=== PATIENT | male | born 1940 | race Caucasian/White ===

== ENCOUNTER 2024-10-16 16:07 | Inpatient (IN) ==
--- NOTE | 2024-10-16 16:25 | Emergency Department Note ---
HPI - Fall General Chief Complaint: Fall Stated Complaint: low back pain from a fall Time Seen by Provider: 10/16/24 16:20 Source: patient Mode of arrival: ambulance Limitations: no limitations History of Present Illness HPI Narrative: 84-year-old male presents to ER via EMS after falling on his front porch while tending to sit in a chair and missing. Patient reports he is having low back pain increased coughing with shortness of breath and bodyaches. MD complaint: Reports fall Onset (ago): minute(s) Fall from: Reports standing Fall witnessed: Reports no Place fall occurred: Reports home Loss of consciousness: none Prolonged down time: Reports no Symptoms prior to fall: Reports none Context: Reports tripped/slipped Location of injury: Reports back Severity: moderate Quality: Reports aching, spasming and throbbing Associated symptoms (after fall): Reports weakness, chest pain, shortness of breath and other (Productive cough) Related Data Home Medications Medication Instructions Recorded Confirmed alfuzosin 10 mg tablet,extended 10 mg PO DAILY 4 02/02/24 release 24 hr gabapentin 400 mg capsule 400 mg PO TID 02/02/2402/01 latanoprost 0.005 % eye drops 1 drp ophthalmic (eye) . QHS 02/02/24 02/03/24 levothyroxine 25 mcg tablet 25 mcg PO DAILY 02/02/24 0 02/02/24 (Synthroid) levothyroxine 50 mcg tablet 50 mcg PO DAILY 02/02/24 0 02/03/24 (Synthroid) simvastatin 20 mg tablet 20 mg PO BEDTIME 02/02/24 fluticasone 250 mcg-salmeterol 50 1 inh inhalation CIARA LY 02/03/24 02/03/24 mcg/dose blistr powdr for inhalation (Wixela Inhub) furosemide 40 mg tablet (Lasix) 40 mg PO DAILY 4 02/03/24 glimepiride 2 mg tablet 2 mg PO QAM 02/03/24 4 guaifenesin 600 mg tablet, 1,200 mg PO DAILY 02/03/24 02/03/24 extended release 12 hr (Mucinex) ipratropium bromide 0.02 % 2.5 ml inhalation TID PRN 0 02/03/24 02/03/24 solution for inhalation shortness of breath or wheez ing potassium chloride 10 mEq 10 meq PO DAILY 02/03/24 tablet,extended release Previous Rx's Medication Instructions Recorded azithromycin 250 mg tablet See Rx Instructions PO .COM PLEX 02/06/24 (Zithromax Z-Elvin) pneumonia #6 tabs prednisone 10 mg tablets in a dose See Rx Instructions PO .COMPLEX 02/06/24 pack copd #21 ea albuterol sulfate 90 mcg/actuation 2 puff inhalation Q 4H PRN 06/12/24 aerosol inhaler shortness of breath or wheez ing #8.5 grams Allergies Allergy/AdvReac Type Severity Reaction Status Date / Time No Known Drug Allergies Allergy Verified 10/16/24 16:12 Review of Systems Status of ROS 10 or more systems reviewed and unremark able except as noted in history and below Constitutional Reports: fatigue Ears, nose, mouth, and throat Reports: nasal discharge and nasal congestion Cardiovascular Reports: chest pain, shortness of breath with exertion and shortness of breath when lying down Respiratory Reports: shortness of breath, cough, change in phlegm color and chest congestion Musculoskeletal Reports: back pain Psychiatric Reports: anxiety Endocrine Reports: fatigue Allergic/Immunologic Reports: seasonal allergies PFSH PFSH Medical History Diabetes Anemia, normocytic normochromic Idmqm-us-stzaziv kidney injury Dementia Chronic venous stasis dermatitis of both lower extremities Diabetic neuropathy associated with type 2 diabetes mellitus Congestive heart failure Glaucoma COPD (chronic obstructive pulmonary disease) Diabetic neuropathic cachexia BPH (benign prostatic hyperplasia) Hypothyroid HTN (hypertension) HLD (hyperlipidemia) Surgical History History of amputation of right great toe Social History (Updated 06/12/24 @ 19:02 by Mignon Galindo APRN) Smoking status: unknown if ever smoked Within the past year, how often did you have a drink containing alcohol: never Score interpretation: A score less than 4 is consistent with normal alcohol consumption. Non-prescribed substance use: denies use Problems where you live: no known problems Highest level of school completed/degree received: high school Feel stressed/tense/nervous/anxious/difficulty sleeping: not at all Life stressors: financial matters Life stressor details: n/a Gender Identity: male Exam Constitutional: normal general appearance, distress noted (moderate) and (respiratory), average body habitus, no limitations and alert Vital Signs - 24 hr 10/16/24 16:11 Temperature 99.4 F Pulse Rate 86 Respiratory Rate 18 Blood Pressure 136/55 Pulse Oximetry 94 L HENMT: normocephalic, head/scalp atraumatic, hearing grossly normal bilaterally, external ears normal, nasal mucous membranes abnormal (Clear) (nasal discharge), external nose normal, oral mucous membranes normal, oropharyn x normal and gingiva normal Eyes: PERRL, EOMs intact bilaterally, conjunctivae normal, no scleral icterus, no papilledema, normal visual garcia by confrontation, alignment normal, periorbital findings normal and no nystagmus Neck/C-Spine: visual inspection normal, trachea midline, cervical spine nontender, cervical full ROM noted and supple Lymph: no lymphadenopathy noted and no lymphedema noted Chest: inspection of chest normal, inspection of breast(s) abnormal and palpation of breast(s) abnormal Respiratory: breath sounds equal bilaterally, normal respiratory effort, auscultation abnormal (diminished breath sound) (Bilateral lower lobes), no wheezes, no rales, no retractions and no use of accessory muscles Patient has a noted productive cough, and decreased lung sounds bilaterally in the lower lobes. Cardiovascular: normal heart rate noted, regular rhythm noted, no gallop, no JVD, peripheral pulses 2+ throughout and no additional abnormal heart sounds Gastrointestinal: abdomen normal to inspection, abdomen soft to palpation, nontender to palpation, nondistended, normoactive bowel sounds, no hepatosplenomegaly, no masses, no pulsatile mass, no ascites and normal rectal exam (deferred) Genitourinary: no CVA tenderness, bladder normal to palpation, penis abnormal (deferred), uncircumcised, testes abnormal, meatus abnormal (deferred), scrotum abnormal (deferred) and inguinal lymphadenopathy noted Back/Pelvis: spine normal to inspection, no thoracic spine tenderness, lumbar spine tenderness noted, thoracic spine ROM normal, lumbar spine ROM normal and no paraspinal muscle tenderness noted Patient reports pain in the lumbar section of the spine with no noted crepitus or step-offs felt on palpation, patient reports he has chronic back pain but it is worse since he fell today. Extremities: normal to inspection, normal to palpation, no tenderness, full ROM, no joint enlargement and no deformity Neurology: corset maker II-XII intact, no movement abnormality noted, no focal motor deficit noted, no sensory deficits noted, gait abnormality noted (unable to access), speech normal, coordination normal, no pronator drift noted, no fasciculations noted and GCS normal Psychiatry: Mental Status Exam documented within this Exam's Psych section mental status grossly normal, oriented x3, thought process normal, cooperative, affect normal, psychomotor activity normal and memory normal Feel stressed/tense/nervous/anxious/difficulty sleeping: not at all Life stressor details: n/a Skin: skin color normal, no rash, no lesions, no ecchymosis noted, no wounds, no lacerations, skin turgor normal, no jaundice, no petechiae, no mottling, nails normal and no alopecia Course Course Hospital Course: 84-year-old male who presented to ER via EMS after falling at home while attempting to get in his shower chair on the front porch and complains of low back pain and productive cough has been evaluated by physical exam, CBC, CMP, urinalysis, EKG, plain film chest x-ray, swabs for flu and COVID, and CT of the lumbar spine results as noted in charting. Patient's chest x-ray shows bilateral lower lobe pneumonia, patient CT of the lumbar spine reveals no acute lumbar fracture with degenerative disc degeneration and bibasilar pneumonia, patient's CMP reveals acute on chronic renal failure, dehydration, and hypoalbuminemia. On arrival patient's O2 saturations were 88% on room air he has improved to 94% on 2 L by nasal cannula. [facility], I will also begin the patient hydration therapy, breathing treatments, antibiotic therapy, and incentive spirometry. Patient has been made aware of the admission and agrees with the treatment plan. Vital Signs Vital signs: Vital Signs Temperature 99.4 F 10/16/24 16:11 Pulse Rate 86 10/16/24 16:11 Respiratory Rate 18 10/16/24 16:11 Blood Pressure 136/55 10/16/24 16:11 Pulse Oximetry 94 L 10/16/24 16:11 Temperature 99.4 F 10/16/24 16:11 Pulse Rate 86 10/16/24 16:11 Respiratory Rate 18 10/16/24 16:11 Blood Pressure 136/55 10/16/24 16:11 Pulse Oximetry 94 L 10/16/24 16:11 MDM - Fall MDM Narrative Medical decision making narrative: Medical Decision Making patient Volle physical exam, CBC, CMP, urinalysis, plain film chest x-ray, CT of the lumbar spine, Swabs for flu and COVID, and EKG. Differential Diagnosis Differential diagnosis: Likely compression fracture, concussion without loss of consciousness and other (COVID, influenza, pneumonia) Medical Records Attestation: I reviewed the patient's medical records. Lab Data Attestation: I reviewed the patient's lab results. Labs: Lab Results 10/16/24 Range/Units 16:30 WBC 6.0 (3.7-9.6) K/uL RBC 3.9 L (4.40-5.80) M/uL Hgb 10.9 L (14.0-17.4) gm/dL Hct 33.9 L (41.3-50.1) % MCV 87.7 (81.9-96.5) fl MCH 28.2 (27.6-33.7) pg MCHC 32.1 L (33.0-35.7) g/dl RDW 14.9 H (11.0-14.8) % Plt Count 197 (142-355) K/uL MPV 8.3 (6.0-10.4) fl Gran % 72.8 (49.1-73.1) % Lymph % (Auto) 15.2 L (17.6-39.05) % [place] % (Auto) 8.3 (4.5-10.7) % Eos % (Auto) 3.2 (0.0-4.0) % Baso % (Auto) 0.5 (0.0-1.3) Lymph # (Auto) 0.9 (0.8-2.9) [place] # (Auto) 0.5 (0.2-0.8) Eos # (Auto) 0.2 (0.0-0.3) Baso # (Auto) 0.0 (0.0-0.1) Absolute Gran (auto) 4.3 (2.0-6.2) Sodium 136 (136-145) mmol/L Potassium 4.2 (3.6-5.2) mmol/L Chloride 102.0 (98-107) mmol/L Carbon Dioxide 29 (21-32) mmol/L Anion Gap 5.0 (4-14) mEq/L BUN 31 H (7-18) mg/dL Creatinine 1.9 H (0.6-1.3) mg/dL Estimated GFR 33.9 (>59.9) Glucose 118 H (70-110) mg/dL Calcium 9.5 (8.5-10.1) mg/dL Magnesium 2.1 (1.8-2.4) mg/dL Total Bilirubin 0.38 (0.0-1.0) mg/dL AST 13 L (15-37) U/L ALT 9 L (30-65) U/L Alkaline Phosphatase 91 (50-136) U/L Troponin I High Sens 12.30 (4.0-60.4) ng/L Total Protein 7.6 (6.4-8.2) g/dL Albumin 3.1 L (3.4-5.0) g/dL COVID-19 (ML) Not detected (Not Detectd) Influenza Type A Ag Negative (Negative) Influenza Type B Ag Negative (Negative) Imaging Data Imaging ordered: Chest x-ray and other (CT scan lumbar spine) Attestation: I personally reviewed and interpreted this imaging study as follows: My impression: Bilateral lower lobe pneumonia Radiologist's impression: EXAM: CT LUMBAR SPINE WO CON HISTORY: fall c/o lower back pain; COMPARISON: Partial visualization of the lumbar spine on CT of the chest without contrast June 12, 2024 TECHNIQUE: CT of the lumbar spine without contrast FINDINGS: There is mild inferior endplate contour irregularity involving L2 which may be due to Schmorl's node activity and is visible on the comparison study unchanged. Otherwise, vertebral body heights are maintained. Degenerative disc changes are noted at L4-5 and L5-S1 with vacuum disc phenomenon. There is bilateral neural foraminal encroachment at L4-5 and L5-S1. The SI joints align normally. The bones are demineralized. Airspace infiltrates are visible in the lung bases concerning for developing pneumonia. There is a large infrarenal aortic aneurysm present with stents extending into the common iliac arteries. The gallbladder is partially visible and appears distended with a dependent stone. No pelvic free fluid. Extensive colon diverticulosis is present. IMPRESSION: Mild bibasilar pneumonia. No lumbar fracture or subluxation. Multilevel degenerative disc and facet changes most pronounced in the lower lumbar spine. All CT scans at this facility use dose modulation, iterative reconstruction, and/or weight based dosing when appropriate to reduce radiation dose to as low as reasonably achievable. THIS IS AN ELECTRONICALLY VERIFIED FINAL REPORT 10/16/2024 5:21 PM - Electronically signed by Dhaval Salinas MD ECG Data Attestation: I have reviewed the pertinent ECG results. Interpretation: Sinus rhythm rate 74 Normal P axis Multiple PVCs RR 792 MO 187 QT 433 P axis 84 QRS -71 T 66 Discharge Plan Discharge Patient Disposition: Admitted As Observation Condition: Stable Clinical Impression: Pneumonia of both lower lobes, Ysvmv-om-ezodxjz kidney injury, Dehydration, Hypoxia, Hypoalbuminemia Time of Disposition: 17:35
[2024-10-16 16:40] LABS: Basophils%(Percent) Auto 0.5 (0.0-1.3); Eosinophils#(Absolute)Auto 0.2 (0.0-0.3); Eosinophils%(Percent) Auto 3.2 % (0.0-4.0); Granulocytes % - Auto 72.8 % (49.1-73.1); Granulocytes#(Absolute)- Auto 4.3 (2.0-6.2); Hematocrit 33.9 % (41.3-50.1); Mean Corpuscular Volume 87.7 fl (81.9-96.5); Monocytes #(Absolute)- Auto 0.5 (0.2-0.8); Monocytes %(Percent)- Auto 8.3 % (4.5-10.7); Platelet Count 197 K/uL (142-355)
[2024-10-16 16:47] LABS: Potassium 4.2 mmol/L (3.6-5.2)
[2024-10-16] MEDS ORDERED: GUAIFENESIN/DEXTROMETHORPHAN 20/200MG/10 ML SOLUTION ONE (16:56)
[2024-10-16] MEDS ORDERED: CODEINE PHOSPHATE/GUAIFENESIN 200/20 MG/ 10 ML LIQUID ONE (16:58)
[2024-10-16] MEDS: CODEINE PHOSPHATE/GUAIFENESIN 200/20 MG/ 10 ML LIQUID PO STA (16:58)
[2024-10-16] MEDS ORDERED: DOCUSATE SODIUM 100 MG CAPSULE PO PRN (17:52)
[2024-10-16] MEDS ORDERED: ACETAMINOPHEN 1000 MG/100 ML 1,000 MG/100 ML IV.SOLN IV PRN (17:52)
[2024-10-16] MEDS ORDERED: HYDROCODONE/ACETAMINOPHEN 5/325 MG TABLET PO PRN (17:52)
[2024-10-16] MEDS ORDERED: ONDANSETRON HCL/PF 4 MG/2 ML VIAL INJ PRN (17:52)
[2024-10-16] MEDS ORDERED: MORPHINE SULFATE 2 MG/ML CARTRIDGE IV PRN (17:52)
[2024-10-16] MEDS ORDERED: 0.9 % SODIUM CHLORIDE MB+ 50 ML IV ONE (18:03)
[2024-10-16] MEDS ORDERED: 0.9 % SODIUM CHLORIDE 250 ML IV ONE (18:04)
[2024-10-16] MEDS ORDERED: CEFTRIAXONE SODIUM 1 GM VIAL ONE (18:04)
[2024-10-16] MEDS ORDERED: AZITHROMYCIN 500 MG VIAL ONE (18:04)
[2024-10-16] MEDS: AZITHROMYCIN 500 MG 500 MG in 0.9 % SODIUM CHLORIDE 250 ML IV SCH (18:05)
[2024-10-16] MEDS: CEFTRIAXONE SODIUM 1 GM in 0.9 % SODIUM CHLORIDE MB+ 50 ML IV SCH (18:06)
[2024-10-16 18:57] LABS: Urine Appearance CLOUDY (CLEAR); Urine Blood TRACE (NEG - TRACE); Urine Color YELLOW (STRAW/YELL.); Urine Urobilinogen Normal (NORMAL)
[2024-10-16 19:02] LABS: Urine Amorphous Sediment Negative (Negative); Urine Yeast Negative (Negative)
[2024-10-16] MEDS: SODIUM CHLORIDE 0.45 % 1,000 ML IV SCH (19:42)
[2024-10-16] MEDS: IPRATROPIUM/ALBUTEROL SULFATE 3 ML AMPUL.NEB INH PRN (19:53)
[2024-10-16] MEDS: BUDESONIDE 0.5 MG/2 ML AMPUL.NEB INH SCH (19:53)
[2024-10-17 05:18] LABS: Potassium 4.4 mmol/L (3.6-5.2)
[2024-10-17 05:21] LABS: Basophils%(Percent) Auto 0.6 (0.0-1.3); Eosinophils#(Absolute)Auto 0.2 (0.0-0.3); Eosinophils%(Percent) Auto 4.7 % (0.0-4.0); Granulocytes % - Auto 67.6 % (49.1-73.1); Hematocrit 31.2 % (41.3-50.1); Mean Corpuscular Volume 87.4 fl (81.9-96.5); Monocytes #(Absolute)- Auto 0.4 (0.2-0.8); Monocytes %(Percent)- Auto 9.6 % (4.5-10.7); Platelet Count 172 K/uL (142-355); White Blood Count 4.5 K/uL (3.7-9.6)
[2024-10-17] MEDS: LEVOTHYROXINE SODIUM 50 MCG TABLET PO SCH (06:06)
[2024-10-17] MEDS: ENOXAPARIN SODIUM 40 MG/0.4 ML SYRINGE SUBQ SCH (08:37)
[2024-10-17] MEDS: PANTOPRAZOLE SODIUM 40 MG TABLET.DR PO SCH (08:37)
--- NOTE | 2024-10-17 11:00 | History & Physical Report ---
H&P: HPI History of Present Illness Chief complaint: Bibasilar pneumonia, hypoxia, hypoalbuminemia,felix Narrative: Pleasant 84 year old male here for pneumonia, CAMELIA, Dehydration, and hypoalbuminemia. He states he was coughing for a few days and short of breath. He came to ER due to low back pain after a fall at home. CXR shows bilateral lower lobe pneumonia. He denies fever, chills, night sweats, no headaches, dizziness or blurred vision, no chest pain, palpitations. No n/v/d/c. Review of Systems Status of ROS 10 or more systems reviewed and unremark able except as noted in history and below Constitutional Reports: fatigue Ears, nose, mouth, and throat Reports: nasal discharge and nasal congestion Cardiovascular Reports: shortness of breath with exertion Respiratory Reports: shortness of breath, cough, change in phlegm color and chest congestion Musculoskeletal Reports: back pain Endocrine Reports: fatigue Allergic/Immunologic Reports: seasonal allergies PFSH PFS Medical History Diabetes Anemia, normocytic normochromic Vlhge-kc-oqutotb kidney injury Dementia Chronic venous stasis dermatitis of both lower extremities Diabetic neuropathy associated with type 2 diabetes mellitus Congestive heart failure Glaucoma COPD (chronic obstructive pulmonary disease) Diabetic neuropathic cachexia BPH (benign prostatic hyperplasia) Hypothyroid HTN (hypertension) HLD (hyperlipidemia) Surgical History History of amputation of right great toe Social History Smoking status: unknown if ever smoked Within the past year, how often did you have a drink containing alcohol: never Score interpretation: A score less than 4 is consistent with normal alcohol consumption. Non-prescribed substance use: denies use Problems where you live: no known problems Highest level of school completed/degree received: decline to answer Feel stressed/tense/nervous/anxious/difficulty sleeping: not at all Life stressors: financial matters Life stressor details: n/a Gender Identity: male Meds Home Medications and Allergies Home Medications Medication Instructions Recorded Confirmed Type alfuzosin 10 mg tablet,extended 10 mg PO DAILY 4 10/16/24 History release 24 hr latanoprost 0.005 % eye drops 1 drp ophthalmic (eye) . QHS 02/02/24 10/16/24 Hist ory levothyroxine 50 mcg tablet 50 mcg PO DAILY 02/02/24 0 10/16/24 History (Synthroid) simvastatin 20 mg tablet 20 mg PO BEDTIME 02/02/24 History glimepiride 2 mg tablet 2 mg PO QAM 02/03/24 5 History guaifenesin 600 mg tablet, 1,200 mg PO DAILY 02/03/24 10/16/24 History extended release 12 hr (Mucinex) Allergies Allergy/AdvReac Type Severity Reaction Status Date / Time No Known Drug Allergies Allergy Verified 10/16/24 19:28 Exam Constitutional: normal general appearance, no apparent distress, average body habitus, no limitations and alert Vital Signs - 24 hr 10/16/24 16:11 10/16/24 19:12 10/16/24 19:23 Temperature 99.4 F 98.4 F 99.4 F Pulse Rate 86 86 Pulse Rate [Brachi al] 89 Respiratory Rate 18 17 18 Blood Pressure 136/55 136/55 Blood Pressure [Le ft Arm] 118/77 Pulse Oximetry 94 L 98 94 L Oxygen Delivery Me thod Room Air Nasal Can nula Oxygen Flow Rate 10/16/24 19:27 10/16/24 19:55 10/16/24 19:55 Temperature Pulse Rate Pulse Rate [Brachi al] Respiratory Rate 19 Blood Pressure Blood Pressure [Le ft Arm] Pulse Oximetry 98 98 Oxygen Delivery Me thod Room Air Nasal Cannula Oxygen Flow Rate 2 10/16/24 23:43 10/17/24 03:41 10/17/24 07:50 Temperature 98.0 F 97.9 F 98 F Pulse Rate Pulse Rate [Brachi al] 66 79 73 Respiratory Rate 20 19 19 Blood Pressure Blood Pressure [Le ft Arm] 106/43 120/65 125/65 Pulse Oximetry 98 98 98 Oxygen Delivery Me thod Room Air Nasal Can nula Room Air Nasal Can nula Nasal Cannula Oxygen Flow Rate 2 10/17/24 08:21 Temperature Pulse Rate Pulse Rate [Brachi al] Respiratory Rate Blood Pressure Blood Pressure [Le ft Arm] Pulse Oximetry 100 Oxygen Delivery Me thod Oxygen Flow Rate HENMT: normocephalic, head/scalp atraumatic, hearing grossly normal bilaterally, external ears normal, external nose normal, oral mucous membranes normal, oropharynx normal and gingiva normal Eyes: PERRL, EOMs intact bilaterally, conjunctivae normal, no scleral icterus and no nystagmus Neck/C-Spine: visual inspection normal, trachea midline and cervical spine nontender Lymph: no lymphadenopathy noted and no lymphedema noted Chest: inspection of chest normal, inspection of breasts normal and palpation of breasts normal Respiratory: breath sounds equal bilaterally, normal respiratory effort, clear to auscultation bilaterally (course bilateral lower lobes), no wheezes, no rales, no retractions and no use of accessory muscles Patient has a noted productive cough Cardiovascular: normal heart rate noted, regular rhythm noted, no gallop, no rub, no murmur, no JVD, peripheral pulses 2+ throughout and no additional abnormal heart sounds Gastrointestinal: abdomen normal to inspection, abdomen soft to palpation, nontender to palpation, nondistended, normoactive bowel sounds and no ascites Genitourinary: deferred Back/Pelvis: spine normal to inspection, no thoracic spine tenderness, lumbar spine tenderness noted, thoracic spine ROM normal, lumbar spine ROM normal and no paraspinal muscle tenderness noted Patient reports pain in the lumbar section of the spine, patient reports he has chronic back pain but it is worse since he fell today. Extremities: normal to inspection, normal to palpation, no tenderness, full ROM, no joint enlargement and no deformity amputation Right Great Toe Neurology: qa internship II-XII intact, no movement abnormality noted, no focal motor deficit noted, no sensory deficits noted, speech normal, coordination normal, no fasciculations noted and GCS normal Psychiatry: mental status grossly normal, oriented x3, thought process normal, cooperative, affect normal, psychomotor activity normal and memory normal Skin: skin color normal, no rash, no lesions, no ecchymosis noted, no wounds, no lacerations, skin turgor normal, no jaundice, no petechiae, no mottling and no alopecia Assessment and Plan Assessment and Plan (1) Pneumonia of both lower lobes: Qualifiers: Pneumonia type: due to unspecified organism Qualified Code(s): J18.9 - Pneumonia, unspecified organism Code(s): J18.9 - Pneumonia, unspecified organism (2) Uzytj-ic-pieiirv kidney injury: Qualifiers: Acute renal failure type: unspecified Chronic kidney disease stage: stage 3 (moderate) Chronic kidney disease stage 3 subtype: stage 3a (GFR 45-59) Qualified Code(s): N17.9 - Acute kidney failure, unspecified; N18.31 - Chronic kidney disease, stage 3a Code(s): N17.9 - Acute kidney failure, unspecified; N18.9 - Chronic kidney disease, unspecified (3) Dehydration: Code(s): E86.0 - Dehydration (4) Hypoalbuminemia: Code(s): E88.09 - Other disorders of plasma-protein metabolism, not elsewhere classified (5) T2DM (type 2 diabetes mellitus): Qualifiers: Diabetes mellitus termination clerk insulin use: without termination clerk use Diabetes mellitus complication status: with other specified complication Qualified Code(s): E11.69 - Type 2 diabetes mellitus with other specified complication Code(s): E11.9 - Type 2 diabetes mellitus without complications Plan Continue home medications Continue IV Rocephin and Azithromycin NS @ 75/hr Protonix and Lovenox for prophylaxis PRN Zofran for nausea PRN Duoneb PRN Hydrocodone/acetaminophen PRN Morphine PRN Lorazepam Repeat CXR in am Repeat CBC, CMP in AM Results Labs Labs: CBC 10/16/24 10/17/24 Range/Units 16:30 04:25 WBC 6.0 4.5 (3.7-9.6) K/uL RBC 3.9 L 3.6 L (4.40-5.80) M/uL Hgb 10.9 L 10.3 L (14.0-17.4) gm/dL Hct 33.9 L 31.2 L (41.3-50.1) % Plt Count 197 172 (142-355) K/uL Gran % 72.8 67.6 (49.1-73.1) % Lymph % (Auto) 15.2 L 17.5 L (17.6-39.05) % [place] % (Auto) 8.3 9.6 (4.5-10.7) % Eos % (Auto) 3.2 4.7 H (0.0-4.0) % Baso % (Auto) 0.5 0.6 (0.0-1.3) Lymph # (Auto) 0.9 0.8 (0.8-2.9) [place] # (Auto) 0.5 0.4 (0.2-0.8) Eos # (Auto) 0.2 0.2 (0.0-0.3) Baso # (Auto) 0.0 0.0 (0.0-0.1) Absolute Gran (auto) 4.3 3.0 (2.0-6.2) CMP 10/16/24 10/17/24 16:30 04:25 Sodium 136 137 Potassium 4.2 4.4 Chloride 102.0 103.0 Carbon Dioxide 29 29 BUN 31 H 28 H Creatinine 1.9 H 1.8 H Glucose 118 H 118 H Calcium 9.5 9.2 Liver Function 10/16/24 Range/Units 16:30 Total Bilirubin 0.38 (0.0-1.0) mg/dL AST 13 L (15-37) U/L ALT 9 L (30-65) U/L Alkaline Phosphatase 91 (50-136) U/L Albumin 3.1 L (3.4-5.0) g/dL Urine 10/16/24 18:25 Urine Color Yellow Urine Appearance Cloudy Ur Specific [place] 1.020 Urine Protein 2+ Urine Glucose (UA) Normal
[2024-10-18 05:28] LABS: Basophils%(Percent) Auto 0.7 (0.0-1.3); Eosinophils#(Absolute)Auto 0.3 (0.0-0.3); Granulocytes % - Auto 75.7 % (49.1-73.1); Granulocytes#(Absolute)- Auto 4.3 (2.0-6.2); Hematocrit 30.7 % (41.3-50.1); Mean Corpuscular Volume 87.9 fl (81.9-96.5); Monocytes #(Absolute)- Auto 0.5 (0.2-0.8); Monocytes %(Percent)- Auto 8.5 % (4.5-10.7); Platelet Count 168 K/uL (142-355); White Blood Count 5.7 K/uL (3.7-9.6)
[2024-10-18 05:47] LABS: Potassium 4.4 mmol/L (3.6-5.2)
[2024-10-18] MEDS ORDERED: IPRATROPIUM/ALBUTEROL SULFATE 3 ML AMPUL.NEB INH PRN (13:00)
[2024-10-18] MEDS: IPRATROPIUM/ALBUTEROL SULFATE 3 ML AMPUL.NEB INH SCH (13:54)
--- NOTE | 2024-10-18 15:01 | Progress Note ---
Progress Note: Subjective Subjective Interval history: 84 year old male here for pneumonia, CAMELIA, Dehydration, and hypoalbuminemia. He states he was coughing for a few days and short of breath. He came to ER due to low back pain after a fall at home. CXR shows bilateral lower lobe pneumonia. He denies fever, chills, night sweats, no headaches, dizziness or blurred vision, no chest pain, palpitations. Patient with continued scheduled nebulized treatments, IV steroids, IV antibiotics. Patient continued to have mild increased work of breathing, some wheezing on exam. Will continue pneumonia pathway at this time. Exam Constitutional: normal general appearance and no apparent distress Vital Signs - 24 hr 10/17/24 15:36 10/17/24 16:00 10/17/24 19:48 Temperature 98.5 F 98.3 F Pulse Rate [Brachi al] 70 83 Respiratory Rate 19 20 Blood Pressure [Le ft Arm] 142/52 99/51 Pulse Oximetry 95 93 L 85 L Oxygen Delivery Me thod Nasal Cannula Room Air Nasal Can nula Oxygen Flow Rate 2 10/17/24 20:17 10/17/24 20:17 10/17/24 23:59 Temperature 97.5 F L Pulse Rate [Brachi al] 78 Respiratory Rate 19 Blood Pressure [Le ft Arm] 98/59 Pulse Oximetry 94 L 94 L 96 Oxygen Delivery Me thod Nasal Cannula Room Air Nasal [place] n[place] Oxygen Flow Rate 2 10/18/24 04:00 10/18/24 07:26 10/18/24 08:31 Temperature 97.8 F 98.4 F Pulse Rate [Brachi al] 73 80 Respiratory Rate 19 19 Blood Pressure [Le ft Arm] 122/56 114/62 Pulse Oximetry 95 98 97 Oxygen Delivery Me thod Room Air CPAP Room Air Oxygen Flow Rate 10/18/24 10:19 10/18/24 12:25 Temperature 98.5 F Pulse Rate [Brachi al] 67 Respiratory Rate 18 Blood Pressure [Le ft Arm] 102/54 Pulse Oximetry 94 L 91 L Oxygen Delivery Me thod Room Air Oxygen Flow Rate HENMT: normocephalic, head/scalp atraumatic, nasal mucous membranes normal and oropharynx normal Eyes: PERRL, EOMs intact bilaterally and conjunctivae normal Neck/C-Spine: visual inspection normal, trachea midline and supple Lymph: no lymphadenopathy noted Chest: inspection of chest normal Respiratory: Decreased breath sounds bilateral bases, mild expiratory wheeze present. No respiratory distress number fatigue Cardiovascular: normal heart rate noted, regular rhythm noted, no gallop, no rub and no murmur Gastrointestinal: abdomen normal to inspection, abdomen soft to palpation, no ntender to palpation, nondistended, no masses and no ascites Genitourinary: no CVA tenderness Back/Pelvis: spine normal to inspection, no thoracic spine tenderness and no lumbar spine tenderness Extremities: normal to inspection, normal to palpation, no tenderness and full ROM Neurology: fatback trimmer II-XII intact, no movement abnormality noted, no focal motor deficit noted, speech normal and GCS normal Psychiatry: mental status grossly normal, oriented x3, thought process normal and cooperative Skin: skin color normal, no rash and no lesions Progress Note: Objective Labs Labs: CBC 10/18/24 Range/Units 05:10 WBC 5.7 (3.7-9.6) K/uL RBC 3.5 L (4.40-5.80) M/uL Hgb 10.0 L (14.0-17.4) gm/dL Hct 30.7 L (41.3-50.1) % Plt Count 168 (142-355) K/uL Gran % 75.7 H (49.1-73.1) % Lymph % (Auto) 10.1 L (17.6-39.05) % [place] % (Auto) 8.5 (4.5-10.7) % Eos % (Auto) 5.0 H (0.0-4.0) % Baso % (Auto) 0.7 (0.0-1.3) Lymph # (Auto) 0.6 L (0.8-2.9) [place] # (Auto) 0.5 (0.2-0.8) Eos # (Auto) 0.3 (0.0-0.3) Baso # (Auto) 0.0 (0.0-0.1) Absolute Gran (auto) 4.3 (2.0-6.2) CMP 10/18/24 05:10 Sodium 134 L Potassium 4.4 Chloride 102.0 Carbon Dioxide 28 BUN 25 H Creatinine 1.9 H Glucose 114 H Calcium 8.9 Urine 10/16/24 18:25 Urine Color Yellow Urine Appearance Cloudy Ur Specific [place] 1.020 Urine Protein 2+ Urine Glucose (UA) Normal Pulse Oximetry Attestation: I have reviewed the pertinent pulse oximetry results. ECG Attestation: I have reviewed the pertinent ECG results. Imaging Chest x-ray: Attestation: I have reviewed the pertinent imaging results. Radiologist's impression: COPD changes, bibasilar airspace disease Progress Note: A&P Assessment and Plan (1) Pneumonia of both lower lobes: Assessment and Plan: Patient with bibasilar pneumonia/airspace disease on chest x-ray. Will continue IV antibiotics, scheduled breathing treatments. Overall, today respiratory effort has improved. Qualifiers: Pneumonia type: due to unspecified organism Qualified Code(s): J18.9 - Pneumonia, unspecified organism (2) [id number] kidney injury: Assessment and Plan: Will continue with gentle IV therapy/hydration as needed. Daily trending of renal function. Will consider nephrology consultation at time of discharge. Qualifiers: Acute renal failure type: unspecified Chronic kidney disease stage: stage 3 (moderate) Chronic kidney disease stage 3 subtype: stage 3a (GFR 45-59) Qualified Code(s): N17.9 - Acute kidney failure, unspecified; N18.31 - Chronic kidney disease, stage 3a (3) Dehydration: Assessment and Plan: as above (4) Hypoalbuminemia: Assessment and Plan: This is likely related to poor nutritional status in conjunction with chronic renal disease. Will continue to trend. (5) T2DM (type 2 diabetes mellitus): Qualifiers: Diabetes mellitus care home insulin use: without care home use Diabetes mellitus complication status: with other specified complication Qualified Code(s): E11.69 - Type 2 diabetes mellitus with other specified complication Plan Continue home medications Continue IV Rocephin and Azithromycin NS @ 75/hr Protonix and Lovenox for prophylaxis PRN Zofran for nausea PRN Duoneb PRN Hydrocodone/acetaminophen PRN Morphine PRN Lorazepam Repeat CXR in am Repeat CBC, CMP in AM Fall Risk Details Snell Fall Scale Risk Level: Moderate Fall Risk Current Medications: Current Medications Hydrocodone Bitart/Acetaminophen (Hydrocodone/Acetaminophen 5/325 Mg Tablet) 1 each PO Q6H PRN PRN Reason: Moderate Pain SCALE 5-7 Albuterol Sulfate (Ipratropium/Albuterol Sulfate 3 Ml Ampul.Neb) 3 ml INH Q2H PRN PRN Reason: Dyspnea Albuterol Sulfate (Ipratropium/Albuterol Sulfate 3 Ml Ampul.Neb) 3 ml INH RQ4 [facility] Last Admin: 10/18/24 13:54 Dose: Not Given Budesonide (Budesonide 0.5 Mg/2 Ml Ampul.Neb) 1 mg INH Q12H [facility] Last Admin: 10/18/24 07:26 Dose: 1 mg Docusate Sodium (Docusate Sodium 100 Mg Capsule) 100 mg PO DAILY PRN PRN Reason: Constipation Enoxaparin Sodium (Enoxaparin Sodium 40 Mg/0.4 Ml Syringe) 40 mg SUBQ DAILY [facility] Last Admin: 10/18/24 09:37 Dose: 40 mg Sodium Chloride (Sodium Chloride 0.45%) 1,000 mls @ 75 mls/hr IV CONT [facility] Last Infusion: 10/18/24 14:04 Dose: Infused Ceftriaxone Sodium 1 gm/ (Sodium Chloride) 50 mls @ 100 mls/hr IV DAILY [facility] Last Infusion: 10/18/24 10:05 Dose: Infused Acetaminophen (Acetaminophen 1000 Mg/100 Ml) 1,000 mg in 100 mls @ 400 mls/hr IV Q6H PRN PRN Reason: Pain Levothyroxine Sodium (Levothyroxine Sodium 50 Mcg Tablet) 50 mcg PO DAILY [facility] Last Admin: 10/18/24 09:36 Dose: 50 mcg Lorazepam (Lorazepam 1 Mg Tablet) 1 mg PO Q8H PRN; Protocol PRN Reason: Anxiety Morphine Sulfate (Morphine Sulfate 2 Mg/Ml Cartridge) 2 mg IV Q4H PRN PRN Reason: Severe Pain SCALE 8-10 Non-Formulary Medication (Solumedrol) 40 mg IV TID8 [facility] Ondansetron HCl (Ondansetron Hcl/Pf 4 Mg/2 Ml Vial) 4 mg INJ Q6H PRN PRN Reason: Nausea And Vomiting Pantoprazole Sodium (Pantoprazole Sodium 40 Mg Tablet.Dr) 40 mg PO DAILY [facility] Last Admin: 10/18/24 09:36 Dose: 40 mg Time Spent With Patient Time: Total time spent is greater than 50% in coordination of care (as documented) at patient's floor/unit and/or counseling patient: Time with patient: 25 - 35 minutes
[2024-10-18] MEDS: CODEINE PHOSPHATE/GUAIFENESIN 200/20 MG/ 10 ML LIQUID PO PRN (21:07)
[2024-10-18] MEDS: METHYLPREDNISOLONE SOD SUCC/PF 40 MG/ML VIAL IV SCH (21:08)
[2024-10-18] MEDS: LORazepam 1 MG TABLET PO PRN (21:08)
[2024-10-19 05:06] LABS: Basophils%(Percent) Auto 0.3 (0.0-1.3); Eosinophils%(Percent) Auto 0.2 % (0.0-4.0); Granulocytes % - Auto 90.1 % (49.1-73.1); Granulocytes#(Absolute)- Auto 4.8 (2.0-6.2); Hematocrit 31.6 % (41.3-50.1); Mean Corpuscular Volume 87.6 fl (81.9-96.5); Monocytes #(Absolute)- Auto 0.1 (0.2-0.8); Monocytes %(Percent)- Auto 2.6 % (4.5-10.7); Platelet Count 185 K/uL (142-355); White Blood Count 5.3 K/uL (3.7-9.6)
[2024-10-19 05:14] LABS: Potassium 4.8 mmol/L (3.6-5.2)
[2024-10-19 08:26] VITALS: TEMP 97.4
--- NOTE | 2024-10-19 11:57 | Discharge Summary ---
DS: Providers Provider Date of admission: 10/16/24 17:53 Primary care physician: Lakhwinder Camp MD Attending physician on admission: Jamil Huffman Attending physician on discharge: Jamil Huffman Discharging clinician: J Luis Escalona DS: Diagnosis Discharge Diagnosis (1) Pneumonia of both lower lobes: Assessment and plan: Patient with known COPD, admitted with acute COPD exacerbation and bibasilar pneumonia. This was noted on chest x-ray. Patient given IV antibiotics, IV steroids, and scheduled nebulized treatments during his hospital course. Patient responded well. Patient is currently on his baseline O2 requirement, room air. His lungs are clear to auscultation on exam. He is eating and drinking without concern. Qualifiers: Pneumonia type: due to unspecified organism Qualified Code(s): J18.9 - Pneumonia, unspecified organism (2) [id number] kidney injury: Assessment and plan: Patient with history of chronic renal insufficiency, current renal function at baseline. Qualifiers: Acute renal failure type: unspecified Chronic kidney disease stage: stage 3 (moderate) Chronic kidney disease stage 3 subtype: stage 3a (GFR 45-59) Qualified Code(s): N17.9 - Acute kidney failure, unspecified; N18.31 - Chronic kidney disease, stage 3a (3) Dehydration: Assessment and plan: Patient initially given IV normal saline fluid bolus with good results. Patient currently p.o. tolerant to solids and liquids. Dehydration is resolved (4) Hypoalbuminemia: Assessment and plan: Patient received and completed IV albumin replacement. Patient tolerated well (5) T2DM (type 2 diabetes mellitus): Assessment and plan: Known type II diabetic, placed on sliding scale per protocol. Qualifiers: Diabetes mellitus complication status: with other specified complication Diabetes mellitus director long term care insulin use: without director long term care use Qualified Code(s): E11.69 - Type 2 diabetes mellitus with other specified complication DS: Summary Hospital Course Hospital Course: 84-year-old male who presented to ER via EMS after falling at home while attempting to get in his shower chair on the front porch and complains of low back pain and productive cough has been evaluated by physical exam, CBC, CMP, urinalysis, EKG, plain film chest x-ray, swabs for flu and COVID, and CT of the lumbar spine results as noted in charting. Patient's chest x-ray shows bilateral lower lobe pneumonia, patient CT of the lumbar spine reveals no acute lumbar fracture with degenerative disc degeneration and bibasilar pneumonia, patient's CMP reveals acute on chronic renal failure, dehydration, and hypoalbuminemia. On arrival patient's O2 saturations were 88% on room air he has improved to 94% on 2 L by nasal cannula. Patient will be admitted to the [facility] floor for albumin administration, I will also begin the patient hydration therapy, breathing treatments, antibiotic therapy, and incentive spirometry. Patient has been made aware of the admission and agrees with the treatment plan. Time spent discussing smoking cessation with patient: 3 to 10 minutes Status at Discharge Functional status at discharge: independent ambulation Overall status at discharge: patient is back to baseline Time Spent with Patient Time attestation: Total time spent providing and/or coordinating discharge services: Time spent: greater than 30 minutes Specific discharge activities: 35 minutes Exam Constitutional: normal general appearance and no apparent distress Vital Signs - 24 hr 10/18/24 12:25 10/18/24 16:00 10/18/24 16:00 Temperature 98.5 F 98.6 F 98.6 F Pulse Rate [Brachi al] 67 72 72 Respiratory Rate 18 18 18 Blood Pressure [Le ft Arm] 102/54 110/56 110/56 Pulse Oximetry 91 L 92 L 92 L Oxygen Delivery Me thod Room Air Room Air Room Air Oxygen Flow Rate Fraction of Inspir ed Oxygen 10/18/24 19:59 10/18/24 19:59 10/18/24 20:00 Temperature 99.5 F Pulse Rate [Brachi al] 90 Respiratory Rate 19 Blood Pressure [Le ft Arm] 119/63 Pulse Oximetry 94 L 94 L 93 L Oxygen Delivery Me thod Nasal Cannula Nasal Cannula Oxygen Flow Rate 2 Fraction of Inspir ed Oxygen 28 10/18/24 23:46 10/19/24 04:00 10/19/24 07:30 Temperature 97.7 F 97.2 F L Pulse Rate [Brachi al] 77 75 Respiratory Rate 18 21 Blood Pressure [Le ft Arm] 138/73 130/75 Pulse Oximetry 96 93 L 95 Oxygen Delivery Me thod CPAP Nasal Cannula Oxygen Flow Rate Fraction of Inspir ed Oxygen 10/19/24 08:00 Temperature 97.4 F L Pulse Rate [Brachi al] 87 Respiratory Rate 19 Blood Pressure [Le ft Arm] 108/66 Pulse Oximetry 94 L Oxygen Delivery Me thod Room Air Oxygen Flow Rate Fraction of Inspir ed Oxygen HENMT: normocephalic, head/scalp atraumatic, oral mucous membranes normal and oropharynx normal Eyes: PERRL, EOMs intact bilaterally and conjunctivae normal Neck/C-Spine: visual inspection normal, trachea midline and supple Lymph: no lymphadenopathy noted Chest: inspection of chest normal Respiratory: breath sounds equal bilaterally, normal respiratory effort, no rales, no retractions and no use of accessory muscles Minimal crackles bilateral bases. Normal respiratory effort Cardiovascular: normal heart rate noted, regular rhythm noted, no gallop, no rub, no murmur and no JVD Gastrointestinal: abdomen normal to inspection, abdomen soft to palpation, nontender to palpation, nondistended, no masses and no ascites Genitourinary: no CVA tenderness Back/Pelvis: spine normal to inspection Extremities: normal to inspection, normal to palpation, no tenderness and full ROM Neurology: household chores II-XII intact, no focal motor deficit noted, speech normal and GCS normal Psychiatry: mental status grossly normal, oriented x3, thought process normal and cooperative Skin: skin color normal, no rash, no lesions and no ecchymosis noted DS: Data Data Completed and Pending Labs on day of discharge: Labs from last 24 hours 10/19/24 04:40 WBC 5.3 RBC 3.6 L Hgb 10.3 L Hct 31.6 L MCV 87.6 MCH 28.6 MCHC 32.7 L RDW 15.3 H Plt Count 185 MPV 8.0 Gran % 90.1 H Lymph % (Auto) 6.8 L [place] % (Auto) 2.6 L Eos % (Auto) 0.2 Baso % (Auto) 0.3 Lymph # (Auto) 0.4 L [place] # (Auto) 0.1 L Eos # (Auto) 0.0 Baso # (Auto) 0.0 Absolute Gran (auto) 4.8 Sodium 133 L Potassium 4.8 Chloride 100.0 Carbon Dioxide 25 Anion Gap 8.0 BUN 26 H Creatinine 1.9 H Estimated GFR 33.9 Glucose 189 H Calcium 8.9 Preliminary micro results at discharge 10/16/24 18:30 Blood Culture - Preliminary Blood - Venous Draw (Peripheral) 10/16/24 18:10 Blood Culture - Preliminary Blood - Venous Draw (Peripheral) Imaging Chest x-ray: Attestation: I have reviewed the pertinent imaging results. Radiologist's impression: COPD changes with bibasilar airspace disease Discharge Plan Discharge Disposition: Home, Self-Care Condition: Stable Discharge Medications: New cefdinir 300 mg capsule 300 mg PO BID 10 Days Qty: 20 0RF benzonatate 200 mg capsule 200 mg PO TID PRN (Reason: cough) Qty: 20 0RF prednisone 20 mg tablet 20 mg PO BID 7 Days Qty: 14 0RF Continued alfuzosin 10 mg tablet extended release 24 hr 10 mg PO DAILY latanoprost 0.005 % drops 1 drp OPHTHALMIC (EYE) .QHS levothyroxine [Synthroid] 50 mcg tablet 50 mcg PO DAILY simvastatin 20 mg tablet 20 mg PO BEDTIME glimepiride 2 mg tablet 2 mg PO QAM Rx Instructions: administer with breakfast Discontinued guaifenesin [Mucinex] 600 mg tablet extended release 12hr 1,200 mg PO DAILY Discharge Orders: Discharge Order (Routine); Ordered 10/19/24 Ordered By: J Luis Escalona Patient Instructions: Chronic Kidney Disease (GEN), COPD (Chronic Obstructive Pulmonary Disease) (GEN), Pneumonia (GEN) Forms: Portal/Health Info Access Inst Follow-Ups: Lakhwinder Camp MD [Primary Care Provider, Medical]
[2024-10-19 12:54] VITALS: BP 120/88; PULSE 62; RESP 18
== END 2024-10-19 13:43 | disposition home or self-care (01) | DRG 190 ==
LOC: MS 16:07 → ED 16:07 → OBSVTOIN 17:53 → MS 19:20
PROVIDERS: ADMIT Nurse Practitioner Family; ATTEND Nurse Practitioner Family
DX: N18.31 Chronic kidney disease, stage 3a; I12.9 Hypertensive chronic kidney disease with stage 1 through stage 4 chronic kidney disease, or unspecified chronic kidney disease; N40.0 Benign prostatic hyperplasia without lower urinary tract symptoms; E11.40 Type 2 diabetes mellitus with diabetic neuropathy, unspecified; E78.5 Hyperlipidemia, unspecified; E11.22 Type 2 diabetes mellitus with diabetic chronic kidney disease; Z79.84 Long term (current) use of oral hypoglycemic drugs; Z79.890 Hormone replacement therapy; E86.0 Dehydration; Y92.098 Other place in other non-institutional residence as the place of occurrence of the external cause; N17.9 Acute kidney failure, unspecified; M54.50 Low back pain, unspecified; F03.90 Unspecified dementia, unspecified severity, without behavioral disturbance, psychotic disturbance, mood disturbance, and anxiety; H40.9 Unspecified glaucoma; J18.9 Pneumonia, unspecified organism; E88.09 Other disorders of plasma-protein metabolism, not elsewhere classified; Z89.411 Acquired absence of right great toe; E03.9 Hypothyroidism, unspecified; W18.39XA Other fall on same level, initial encounter; J44.1 Chronic obstructive pulmonary disease with (acute) exacerbation; J44.0 Chronic obstructive pulmonary disease with (acute) lower respiratory infection; Z79.899 Other long term (current) drug therapy

== ENCOUNTER 2024-11-20 12:33 | Observation (INO) ==
[2024-11-20 13:09] LABS: Basophils%(Percent) Auto 0.4 (0.0-1.3); Eosinophils#(Absolute)Auto 0.1 (0.0-0.3); Eosinophils%(Percent) Auto 1.2 % (0.0-4.0); Granulocytes % - Auto 74.5 % (49.1-73.1); Granulocytes#(Absolute)- Auto 4.2 (2.0-6.2); Hematocrit 31.4 % (41.3-50.1); Mean Corpuscular Volume 84.8 fl (81.9-96.5); Monocytes #(Absolute)- Auto 0.5 (0.2-0.8); Monocytes %(Percent)- Auto 8.7 % (4.5-10.7); Platelet Count 250 K/uL (142-355); White Blood Count 5.6 K/uL (3.7-9.6)
[2024-11-20 13:23] LABS: Potassium 4.5 mmol/L (3.6-5.2)
--- NOTE | 2024-11-20 13:27 | Emergency Department Note ---
HPI - SOB/Dyspnea General Chief Complaint: Nausea/Vomiting/Diarrhea Stated Complaint: choking when laying down Time Seen by Provider: 11/20/24 12:35 Source: patient Source comment: patient Mode of arrival: walk-in Limitations: no limitations History of Present Illness HPI Narrative: 84-year-old male presents to ER with complaint of shortness of breath and choking whenever he lays flat, patient has longstanding history of COPD CHF reports as long as he sits upright that he is able to breathe; however, patient does become visibly short of breath with any attempts at walking or exertion. MD elicited complaint: Reports shortness of breath, pain with inspiration and anxiety Pertinent past history: Reports COPD and congestive heart failure Onset (ago): day(s) (2) Context: Reports anxiety and other Timing: Reports constant and progressively worsening Severity: moderate Exacerbating factors: Reports lying flat, exertion, coughing, warm air and humidity Relieving factors: Reports oxygen, bronchodilators, upright position and cool air Known history of: Reports COPD and congestive heart failure Associated symptoms: Reports cough and orthopnea Treatment prior to arrival: Reports none Related Data Home Medications Medication Instructions Recorded Confirmed alfuzosin 10 mg tablet,extended 10 mg PO DAILY 4 10/16/24 release 24 hr latanoprost 0.005 % eye drops 1 drp ophthalmic (eye) . QHS 02/02/24 10/16/24 levothyroxine 50 mcg tablet 50 mcg PO DAILY 02/02/24 0 10/16/24 (Synthroid) simvastatin 20 mg tablet 20 mg PO BEDTIME 02/02/24 glimepiride 2 mg tablet 2 mg PO QAM 02/03/24 5 Previous Rx's Medication Instructions Recorded benzonatate 200 mg capsule 200 mg PO TID PRN cough #20 caps 10/19/24 Allergies Allergy/AdvReac Type Severity Reaction Status Date / Time No Known Drug Allergies Allergy Verified 11/20/24 12:53 Review of Systems Status of ROS 10 or more systems reviewed and unremark able except as noted in history and below Cardiovascular Reports: swelling of feet/ankles, shortness of breath with exertion and shortness of breath when lying down Respiratory Reports: shortness of breath Psychiatric Reports: anxiety PFSH PFS Medical History Diabetes Anemia, normocytic normochromic Iteji-mv-[id number] kidney injury Dementia Chronic venous stasis dermatitis of both lower extremities Diabetic neuropathy associated with type 2 diabetes mellitus Congestive heart failure Glaucoma COPD (chronic obstructive pulmonary disease) Diabetic neuropathic cachexia BPH (benign prostatic hyperplasia) Hypothyroid HTN (hypertension) HLD (hyperlipidemia) Surgical History History of amputation of right great toe Social History Smoking status: former smoker Within the past year, how often did you have a drink containing alcohol: never Score interpretation: A score less than 4 is consistent with normal alcohol consumption. Non-prescribed substance use: denies use What is your current living situation: I presently have a place to live Problems where you live: no known problems Highest level of school completed/degree received: decline to answer Feel stressed/tense/nervous/anxious/difficulty sleeping: rather much Life stressors: financial matters Life stressor details: Current medical condition Gender Identity: male Exam Constitutional: normal general appearance, distress noted (moderate), average body habitus, no limitations and alert Vital Signs - 24 hr 11/20/24 12:51 11/20/24 13:46 11/20/24 13:48 Temperature 99.1 F Pulse Rate 90 87 Respiratory Rate 18 16 Blood Pressure 96/59 100/58 98/71 Pulse Oximetry 96 96 Oxygen Delivery Me thod Room Air Nasal Cannula Oxygen Flow Rate 2 11/20/24 14:00 11/20/24 14:25 Temperature Pulse Rate 80 Respiratory Rate 18 Blood Pressure 100/58 Pulse Oximetry 96 95 Oxygen Delivery Me thod Nasal Cannula Oxygen Flow Rate 2 HENMT: normocephalic, head/scalp atraumatic, hearing grossly normal bilateral ly, external ears normal, nasal mucous membranes normal, external nose normal, oral mucous membranes normal, oropharynx normal, dentition abnormal (caries) and gingiva normal Eyes: PERRL, EOMs intact bilaterally, conjunctivae normal, no scleral icterus, no papilledema, normal visual garcia by confrontation, alignment normal, periorbital findings normal and no nystagmus Neck/C-Spine: visual inspection normal, trachea midline, cervical spine nontender, cervical full ROM noted, supple and no meningeal signs Lymph: no lymphadenopathy noted and no lymphedema noted Chest: inspection of chest normal Respiratory: breath sounds equal bilaterally, abnormal respiratory effort (labored) (With exertion and orthopnea noted.), clear to auscultation bilaterally, no wheezes, rales noted (base), no retractions and no use of accessory muscles Cardiovascular: normal heart rate noted, regular rhythm noted, no gallop, no murmur, no JVD, peripheral pulses 2+ throughout and no additional abnormal heart sounds Gastrointestinal: abdomen normal to inspection, abdomen soft to palpation, nontender to palpation, nondistended, normoactive bowel sounds, no hepatosplenomegaly, no masses, no pulsatile mass and no ascites Genitourinary: no CVA tenderness and bladder normal to palpation Back/Pelvis: spine normal to inspection Extremities: normal to inspection, normal to palpation, no tenderness, full ROM, no joint enlargement and no deformity Neurology: cant gang sawyer II-XII intact, no movement abnormality noted, no focal motor deficit noted, no sensory deficits noted, gait normal, speech normal, coordination normal, no pronator drift noted, no fasciculations noted and GCS normal Psychiatry: Mental Status Exam documented within this Exam's Psych section mental status grossly normal, oriented x3 (Patient is alert and oriented to his normal state), thought process normal, cooperative, affect normal, psychomotor activity normal and memory normal Feel stressed/tense/nervous/anxious/difficulty sleeping: rather much Life stressor details: Current medical condition Skin: skin color normal, no rash, no lesions, no ecchymosis noted, no wounds, no lacerations, skin turgor normal, no jaundice, no petechiae, no mottling, nails normal and no alopecia Course Course Hospital Course: 84-year-old male that presented to ER with complaint of dyspnea and shortness of breath upon exertion and when lying down report he feels like he is choking whenever he lays back has been evaluated by physical exam, CBC, CMP, BNP, urinalysis, EKG, and plain film chest x-ray with results as noted in charting. Patient's CBC shows patient anemic with a hemoglobin of 10.4, patient's BNP is elevated at 103, CMP shows hyponatremia with a sodium of 129, elevated BUN and creatinine with a BUN of 31 and creatinine 1.8 showing acute on chronic kidney injury and dehydration, patient is also hypoalbuminemic at 2.8, patient's plain film chest x-ray shows increased streaky bibasilar atelectasis/infiltrates. Patient will be admitted to [facility] floor for diuresis and hydration, albumin replacement, sodium replacement, respiratory therapy evaluation, breathing treatments, and repeat lab work as necessary. Patient has been made aware of the treatment plan and agrees with it. Vital Signs Vital signs: Vital Signs Temperature 99.1 F 11/20/24 12:51 Pulse Rate 90 11/20/24 12:51 Respiratory Rate 18 11/20/24 12:51 Blood Pressure 96/59 11/20/24 12:51 Pulse Oximetry 96 11/20/24 12:51 Oxygen Delivery Method Room Air 11/20/24 12:51 Temperature 99.1 F 11/20/24 12:51 Pulse Rate 80 11/20/24 14:00 Respiratory Rate 18 11/20/24 14:00 Blood Pressure 100/58 11/20/24 14:00 Pulse Oximetry 95 11/20/24 14:25 Oxygen Delivery Method Nasal Cannula 11/20/24 14:00 Oxygen Flow Rate 2 11/20/24 14:00 MDM - SOB/Dyspnea MDM Narrative Medical decision making narrative: Medical decision making for this patient involved physical exam, CBC, CMP, BNP, EKG, plain film chest x-ray, and BNP. Differential Diagnosis Differential diagnosis: Likely acute exacerbation of chronic obstructive airways disease, congestive heart failure, community acquired pneumonia and other (COVID, influenza, fluid overload) Medical Records Attestation: I reviewed the patient's medical records. Lab Data Attestation: I reviewed the patient's lab results. Labs: Lab Results 11/20/24 Range/Units 13:04 WBC 5.6 (3.7-9.6) K/uL RBC 3.7 L (4.40-5.80) M/uL Hgb 10.4 L (14.0-17.4) gm/dL Hct 31.4 L (41.3-50.1) % MCV 84.8 (81.9-96.5) fl MCH 28.1 (27.6-33.7) pg MCHC 33.2 (33.0-35.7) g/dl RDW 15.4 H (11.0-14.8) % Plt Count 250 (142-355) K/uL MPV 8.1 (6.0-10.4) fl Gran % 74.5 H (49.1-73.1) % Lymph % (Auto) 15.2 L (17.6-39.05) % [place] % (Auto) 8.7 (4.5-10.7) % Eos % (Auto) 1.2 (0.0-4.0) % Baso % (Auto) 0.4 (0.0-1.3) Lymph # (Auto) 0.9 (0.8-2.9) [place] # (Auto) 0.5 (0.2-0.8) Eos # (Auto) 0.1 (0.0-0.3) Baso # (Auto) 0.0 (0.0-0.1) Absolute Gran (auto) 4.2 (2.0-6.2) Sodium 129 L (136-145) mmol/L Potassium 4.5 (3.6-5.2) mmol/L Chloride 94.0 L (98-107) mmol/L Carbon Dioxide 29 (21-32) mmol/L Anion Gap 6.0 (4-14) mEq/L BUN 31 H (7-18) mg/dL Creatinine 1.8 H (0.6-1.3) mg/dL Estimated GFR 36.2 (>59.9) Glucose 141 H (70-110) mg/dL Calcium 9.1 (8.5-10.1) mg/dL Total Bilirubin 0.56 (0.0-1.0) mg/dL AST 20 (15-37) U/L ALT 10 L (30-65) U/L Alkaline Phosphatase 98 (50-136) U/L B-Natriuretic Peptide 103.0 H (0-100) pg/mL Total Protein 7.4 (6.4-8.2) g/dL Albumin 2.8 L (3.4-5.0) g/dL Imaging Data Imaging ordered: Chest x-ray Attestation: I have reviewed the pertinent imaging results. Radiologist's impression: EXAM: XR CHEST 1V HISTORY: shortness of breathshortness of breath; COMPARISON: 11/06/2024 TECHNIQUE: AP portable FINDINGS: Stable cardiac silhouette. Mild increased streaky bibasilar opacities. No large pleural effusion or visible pneumothorax. IMPRESSION: Mild increased streaky bibasilar atelectasis/infiltrates. THIS IS AN ELECTRONICALLY VERIFIED FINAL REPORT 11/20/2024 1:05 PM - Electronically signed by Ryan Pacheco MD ECG Data Attestation: I have reviewed the pertinent ECG results. 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
[2024-11-20] MEDS ORDERED: BUMETANIDE 1 MG/4 ML VIAL ONE (13:37)
[2024-11-20] MEDS ORDERED: METHYLPREDNISOLONE SOD SUCC/PF 125 MG/2 ML VIAL ONE (13:37)
[2024-11-20] MEDS: METHYLPREDNISOLONE SOD SUCC/PF 125 MG/2 ML VIAL IVP ONE (13:46)
[2024-11-20] MEDS: BUMETANIDE 1 MG/4 ML VIAL IVP ONE (13:46)
[2024-11-20] MEDS: IPRATROPIUM/ALBUTEROL SULFATE 3 ML AMPUL.NEB INH ONE (14:24)
[2024-11-20] MEDS ORDERED: MAGNESIUM, ALUMINUM HYDROXIDE 30 ML ORAL.SUSP PO PRN (14:59)
[2024-11-20] MEDS ORDERED: DOCUSATE SODIUM 100 MG CAPSULE PO PRN (14:59)
[2024-11-20] MEDS ORDERED: ACETAMINOPHEN 500 MG TABLET PO PRN (14:59)
[2024-11-20] MEDS ORDERED: ONDANSETRON HCL/PF 4 MG/2 ML VIAL INJ PRN (14:59)
[2024-11-20 15:02] LABS: Specific Gravity Urine 1.015 (1.001-1.035); Urine Appearance CLEAR (CLEAR); Urine Blood NEGATIVE (NEG - TRACE); Urine Color YELLOW (STRAW/YELL.); Urine Urobilinogen Normal (NORMAL)
[2024-11-20] MEDS ORDERED: MORPHINE SULFATE 2 MG/ML CARTRIDGE IV PRN (15:14)
[2024-11-20 15:20] LABS: Base Excess ABG 2.9 mmo1/L (-2-2); Oxygen Saturation ABG 98 % (92-100); PCO2 ABG 32 mmHg (35-45); PO2 ABG 91 mmHg (60-100); pH ABG 7.51 (7.35-7.45)
[2024-11-20] MEDS: IPRATROPIUM/ALBUTEROL SULFATE 3 ML AMPUL.NEB INH SCH ×2 (15:36→20:34)
[2024-11-20] MEDS: 0.9 % SODIUM CHLORIDE 1000 ML 1,000 ML IV SCH (17:06)
[2024-11-20] MEDS: HYDROCODONE/ACETAMINOPHEN 5/325 MG TABLET PO PRN (19:35)
[2024-11-20] MEDS: dexAMETHasone 4 MG TABLET PO SCH (22:04)
[2024-11-21 05:26] LABS: Basophils%(Percent) Auto 0.1 (0.0-1.3); Granulocytes % - Auto 89.4 % (49.1-73.1); Granulocytes#(Absolute)- Auto 3.8 (2.0-6.2); Hematocrit 27.1 % (41.3-50.1); Mean Corpuscular Volume 84.3 fl (81.9-96.5); Monocytes #(Absolute)- Auto 0.2 (0.2-0.8); Monocytes %(Percent)- Auto 4.4 % (4.5-10.7); Platelet Count 210 K/uL (142-355); White Blood Count 4.2 K/uL (3.7-9.6)
[2024-11-21] MEDS: PANTOPRAZOLE SODIUM 40 MG TABLET.DR PO SCH (08:23)
--- NOTE | 2024-11-21 13:25 | History & Physical Report ---
H&P: HPI History of Present Illness Chief complaint: atelactasis, chf exacerbation, hyponatremia Narrative: 84-year-old male presents to ER with complaint of shortness of breath and choking whenever he lays flat, patient has longstanding history of COPD CHF reports as long as he sits upright that he is able to breathe; however, patient does become visibly short of breath with any attempts at walking or exertion. Onset (ago): day(s) (2) constant and progressively worsening Reports shortness of breath, pain with inspiration and anxiety, No nausea no vomiting no weight change no bowel habit changes no ill contacts no travel history of COPD and congestive heart failure Exacerbating factors: Reports lying flat, exertion, coughing, warm air and humidity Relieving factors: Reports oxygen, bronchodilators, upright position and cool air Review of Systems Status of ROS 10 or more systems reviewed and unremark able except as noted in history and below Constitutional Reports: fatigue and malaise; Denies: fever, chills, change in weight, night sweats or change in sleep pattern Eyes Denies: change in vision, blurry vision, blind spots, light sensitivity or eye discomfort Ears, nose, mouth, and throat Denies: throat pain, neck pain, throat swelling, difficulty swallowing, hoarseness, mouth pain or swelling of lips/tongue Cardiovascular Reports: edema, swelling of feet/ankles, shortness of breath with exertion and shortness of breath when lying down; Denies: chest pain or palpitations Respiratory Reports: shortness of breath, cough, wheezing and chest congestion; Denies: stridor, pain on inspiration, change in phlegm color or coughing up blood Gastrointestinal Reports: heartburn and feeling full early; Denies: abdominal pain, nausea, vomiting, coffee grounds in vomit, diarrhea, constipation or difficulty swallowing Genitourinary Denies: painful urination, urinary frequency, urinary urgency or blood in urine Musculoskeletal Reports: back pain, extremity swelling and limited range of motion; Denies: neck pain, extremity pain, joint pain or joint swelling Integumentary/Breast Denies: rash, itching, redness, skin pain, skin tenderness, skin swelling or sores Neurological Denies: headache or numbness in extremities Psychiatric Reports: anxiety, loss of interest, irritability and difficulty co ncentrating; Denies: mood swings, panic attacks, change in sleep pattern, hopelessness, paranoia, memory loss, visual hallucinations, auditory hallucinations, tactile hallucinations, suicidal ideation or homicidal ideation Endocrine Reports: fatigue; Denies: excessive urination, excessive thirst, cold intolerance or excessive sweating Hematologic/Lymphatic Denies: easy bruising, easy bleeding or enlarged lymph nodes Allergic/Immunologic Denies: hives, throat swelling, tongue swelling, facial swelling or wheezing PFSH PFSH Medical History Diabetes Anemia, normocytic normochromic [id number] kidney injury Dementia Chronic venous stasis dermatitis of both lower extremities Diabetic neuropathy associated with type 2 diabetes mellitus Congestive heart failure Glaucoma COPD (chronic obstructive pulmonary disease) Diabetic neuropathic cachexia BPH (benign prostatic hyperplasia) Hypothyroid HTN (hypertension) HLD (hyperlipidemia) Surgical History History of amputation of right great toe Social History Smoking status: former smoker Within the past year, how often did you have a drink containing alcohol: never Score interpretation: A score less than 4 is consistent with normal alcohol consumption. Non-prescribed substance use: denies use What is your current living situation: I presently have a place to live Problems where you live: no known problems Highest level of school completed/degree received: high school Feel stressed/tense/nervous/anxious/difficulty sleeping: to some extent Life stressors: financial matters Life stressor details: Current medical condition Gender Identity: male Meds Home Medications and Allergies Home Medications Medication Instructions Recorded Confirmed Type alfuzosin 10 mg tablet,extended 10 mg PO DAILY 4 10/16/24 History release 24 hr latanoprost 0.005 % eye drops 1 drp ophthalmic (eye) . QHS 02/02/24 10/16/24 History levothyroxine 50 mcg tablet 50 mcg PO DAILY 02/02/24 0 11/20/24 History (Synthroid) simvastatin 20 mg tablet 20 mg PO BEDTIME 02/02/24 History glimepiride 2 mg tablet 2 mg PO QAM 02/03/24 5 History benzonatate 200 mg capsule 200 mg PO TID PRN cough #20 caps 10/19/24 Rx fluticasone 250 mcg-salmeterol 50 1 inh inhalation Q12 H 11/20/24 11/20/24 History mcg/dose blistr powdr for inhalation (Killian Grigsby) Allergies Allergy/AdvReac Type Severity Reaction Status Date / Time No Known Drug Allergies Allergy Verified 11/20/24 12:53 Exam Constitutional: abnormal general appearance (disheveled), (chronically ill) and (frail appearing), distress noted (moderate), average body habitus, limitations noted (physical limitations) and alert Vital Signs - 24 hr 11/20/24 13:46 11/20/24 13:48 11/20/24 14:00 Temperature Pulse Rate 87 80 Pulse Rate [Brachi al] Respiratory Rate 16 18 Blood Pressure 100/58 98/71 100/58 Blood Pressure [Le ft Arm] Pulse Oximetry 96 96 Oxygen Delivery Me thod Nasal Cannula Nasal Cannula Oxygen Flow Rate 2 2 11/20/24 14:25 11/20/24 15:00 11/20/24 15:26 Temperature Pulse Rate 84 Pulse Rate [Brachi al] 102 H Respiratory Rate 18 Blood Pressure 97/74 Blood Pressure [Le ft Arm] Pulse Oximetry 95 96 Oxygen Delivery Me thod Nasal Cannula Nasal Cannula Oxygen Flow Rate 2 2 11/20/24 15:26 11/20/24 15:36 11/20/24 15:45 Temperature 98.9 F Pulse Rate 87 Pulse Rate [Brachi al] 102 H Respiratory Rate 17 16 Blood Pressure 100/72 Blood Pressure [Le ft Arm] 83/55 Pulse Oximetry 98 96 96 Oxygen Delivery Me thod Nasal Cannula Nasal Cannula Oxygen Flow Rate 2 2 11/20/24 15:50 11/20/24 16:00 11/20/24 19:57 Temperature 99.1 F 98.1 F Pulse Rate 87 Pulse Rate [Brachi al] 93 H Respiratory Rate 16 21 Blood Pressure 100/72 83/55 Blood Pressure [Le ft Arm] 105/56 Pulse Oximetry 96 95 Oxygen Delivery Me thod Nasal Cannula Oxygen Flow Rate 11/20/24 20:35 11/20/24 20:35 11/20/24 23:42 Temperature 97.6 F Pulse Rate Pulse Rate [Brachi al] 85 Respiratory Rate 19 Blood Pressure Blood Pressure [Le ft Arm] 120/60 Pulse Oximetry 98 98 93 L Oxygen Delivery Me thod Nasal Cannula Nasal Cannula Oxygen Flow Rate 2 11/21/24 03:43 11/21/24 07:21 11/21/24 08:00 Temperature 97.5 F L 98.9 F Pulse Rate Pulse Rate [Brachi al] 72 99 H Respiratory Rate 18 20 Blood Pressure Blood Pressure [Le ft Arm] 97/55 105/53 Pulse Oximetry 95 96 93 L Oxygen Delivery Me thod Nasal Cannula Room Air Oxygen Flow Rate 11/21/24 11:10 11/21/24 11:45 Temperature 97.4 F L Pulse Rate Pulse Rate [Brachi al] 85 Respiratory Rate 19 Blood Pressure Blood Pressure [Le ft Arm] 107/57 Pulse Oximetry 95 94 L Oxygen Delivery Me thod Room Air Oxygen Flow Rate HENMT: normocephalic, head/scalp atraumatic, hearing grossly normal bilaterally, external ears normal, nasal mucous membranes normal, external nose normal, oral mucous membranes normal, oropharynx normal, dentition abnormal (caries) and gingiva normal Eyes: PERRL, EOMs intact bilaterally, conjunctivae normal, no scleral icterus, papilledema noted, alignment normal, periorbital findings normal and no nystagmu s Neck/C-Spine: abnormal to visual inspection, trachea midline, cervical spine nontender, abnormal cervical ROM noted, supple, no meningeal signs and no carotid bruits Lymph: no lymphadenopathy noted and no lymphedema noted Chest: inspection of chest normal and palpation of chest normal Respiratory: breath sounds unequal, abnormal respiratory effort (labored) (With exertion and orthopnea noted.), clear to auscultation bilaterally, no wheezes, rales noted (base), no retractions and no use of accessory muscles Cardiovascular: normal heart rate noted, regular rhythm noted, no gallop, no murmur, no JVD, peripheral pulses 2+ throughout and no additional abnormal heart sounds Gastrointestinal: abdomen abnormal to inspection, abdomen soft to palpation, nontender to palpation, nondistended, normoactive bowel sounds, hepatosplenomegaly noted, no masses, no pulsatile mass and no ascites Genitourinary: no CVA tenderness and bladder normal to palpation Back/Pelvis: spine abnormal to inspection, no thoracic spine tenderness, lumbar spine tenderness noted, thoracic spine ROM abnormal and lumbar spine ROM abnormal Extremities: abnormal to inspection, abnormal to palpation, no tenderness, abnormal ROM noted, no joint enlargement and no deformity Chronic venous stasis changes 2+ pitting edema bilaterally no open wounds at this time Neurology: clothes shaker II-XII intact, no movement abnormality noted, no focal motor deficit noted, sensory deficit noted, deep tendon reflexes as noted:, gait abnormality noted, speech normal, coordination normal, no pronator drift noted, no fasciculations noted and GCS normal Psychiatry: Mental Status Exam documented within this Exam's Psych section mental status grossly normal, oriented x3 (Patient is alert and oriented to his normal state), thought process abnormality noted, cooperative, affect abnor mality noted (anxious), psychomotor abnormality noted (agitated) and memory abnormal Feel stressed/tense/nervous/anxious/difficulty sleeping: to some extent Life stressor details: Current medical condition Skin: skin color normal, no rash, no lesions, no ecchymosis noted, no wounds, no lacerations, skin turgor abnormal, no jaundice, no petechiae, mottling noted Reports (extremities) (Chronic knees lateral shins), nails abnormality noted and alopecia noted Assessment and Plan Assessment and Plan (1) Hyponatremia: Code(s): E87.1 - Hypo-osmolality and hyponatremia (2) Dehydration: Code(s): E86.0 - Dehydration (3) Congestive heart failure: Qualifiers: Heart failure chronicity: chronic Heart failure type: unspecified Qualified Code(s): I50.9 - Heart failure, unspecified Code(s): I50.9 - Heart failure, unspecified (4) Pneumonia of both lower lobes: Qualifiers: Pneumonia type: due to unspecified organism Qualified Code(s): J18.9 - Pneumonia, unspecified organism Code(s): J18.9 - Pneumonia, unspecified organism (5) COPD (chronic obstructive pulmonary disease): Qualifiers: COPD type: COPD with acute lower respiratory infection Qualified Code(s): J44.0 - Chronic obstructive pulmonary disease with (acute) lower respiratory infection Code(s): J44.9 - Chronic obstructive pulmonary disease, unspecified (6) Diabetic neuropathy associated with type 2 diabetes mellitus: Qualifiers: Diabetes mellitus complication detail: diabetic polyneuropathy Qualified Code(s): E11.42 - Type 2 diabetes mellitus with diabetic polyneuropathy Code(s): E11.40 - Type 2 diabetes mellitus with diabetic neuropathy, unspecified (7) Hypoalbuminemia: Code(s): E88.09 - Other disorders of plasma-protein metabolism, not elsewhere classified (8) Encounter for end of life education, guidance and counseling: (9) Anemia, normocytic normochromic: Code(s): D64.9 - Anemia, unspecified (10) [id number] kidney injury: Qualifiers: Acute renal failure type: unspecified Chronic kidney disease stage: stage 3 (moderate) Chronic kidney disease stage 3 subtype: stage 3a (GFR 45-59) Qualified Code(s): N17.9 - Acute kidney failure, unspecified; N18.31 - Chronic kidney disease, stage 3a Code(s): N17.9 - Acute kidney failure, unspecified; N18.9 - Chronic kidney disease, unspecified (11) Dementia: Qualifiers: Dementia behavioral or psychological symptom: with other behavioral disturbance Dementia severity: mild Dementia type: vascular dementia Qualified Code(s): F01.A18 - Vascular dementia, mild, with other behavioral disturbance Code(s): F03.90 - Unspecified dementia, unspecified severity, without behavioral disturbance, psychotic disturbance, mood disturbance, and anxiety (12) HLD (hyperlipidemia): Qualifiers: Hyperlipidemia type: mixed hyperlipidemia Qualified Code(s): E78.2 - Mixed hyperlipidemia Code(s): E78.5 - Hyperlipidemia, unspecified (13) HTN (hypertension): Qualifiers: Hypertension type: primary hypertension Qualified Code(s): I10 - Essential (primary) hypertension Code(s): I10 - Essential (primary) hypertension (14) Hypothyroid: Qualifiers: Hypothyroidism type: other Qualified Code(s): E03.8 - Other specified hypothyroidism Code(s): E03.9 - Hypothyroidism, unspecified (15) BPH (benign prostatic hyperplasia): Qualifiers: Lower urinary tract symptom detail: unspecified Lower urinary tract symptom presence: symptoms present Qualified Code(s): N40.1 - Benign prostatic hyperplasia with lower urinary tract symptoms Code(s): N40.0 - Benign prostatic hyperplasia without lower urinary tract symptoms (16) Chronic venous stasis dermatitis of both lower extremities: Code(s): I87.2 - Venous insufficiency (chronic) (peripheral) Plan Cardiac monitoring continuous pulse ox Cautious IV hydration with normal saline at 83 an hour with daily weights Diuretics as warranted secondary to fluid overload with congestive heart failure and vascularly dry at this time Strict I's and O's DuoNeb every 6 hours Oxygen to keep sats greater than 92% Pulmicort 0.5 every 12 hours Solu-Medrol 40 mg IV every 8 hours Zithromax 500 mg every day Rocephin 1 g IV every day Leave head of bed elevated do not lay patient flat Results Labs Labs: CBC 11/21/24 Range/Units 05:20 WBC 4.2 (3.7-9.6) K/uL RBC 3.2 L (4.40-5.80) M/uL Hgb 9.0 L (14.0-17.4) gm/dL Hct 27.1 L (41.3-50.1) % Plt Count 210 (142-355) K/uL Gran % 89.4 H (49.1-73.1) % Lymph % (Auto) 6.1 L (17.6-39.05) % Norton % (Auto) 4.4 L (4.5-10.7) % Eos % (Auto) 0.0 (0.0-4.0) % Baso % (Auto) 0.1 (0.0-1.3) Lymph # (Auto) 0.3 L (0.8-2.9) Norton # (Auto) 0.2 (0.2-0.8) Eos # (Auto) 0.0 (0.0-0.3) Baso # (Auto) 0.0 (0.0-0.1) Absolute Gran (auto) 3.8 (2.0-6.2) CMP 11/20/24 11/21/24 13:04 05:20 Sodium 129 L 133 L Potassium 4.5 4.0 Chloride 94.0 L 96.0 L Carbon Dioxide 29 26 BUN 31 H 37 H Creatinine 1.8 H 2.1 H Glucose 141 H 276 H Calcium 9.1 8.8 Liver Function 11/20/24 Range/Units 13:04 Total Bilirubin 0.56 (0.0-1.0) mg/dL AST 20 (15-37) U/L ALT 10 L (30-65) U/L Alkaline Phosphatase 98 (50-136) U/L Albumin 2.8 L (3.4-5.0) g/dL Urine 11/20/24 14:55 Urine Color Yellow Urine Appearance Clear Ur Specific Starbuck 1.015 Urine Protein Negative Urine Glucose (UA) Normal ABG ABG results: 11/20/24 15:08 ABG pH 7.51 H ABG pCO2 32 L ABG pO2 160 ABG HCO3 25.5 ABG Total CO2 26.5 ABG O2 Saturation 98 ABG Base Excess 2.9 H Attestation: I have reviewed the pertinent ABG results. Pulse Oximetry Attestation: I have reviewed the pertinent pulse oximetry results. ECG Attestation: I have reviewed the pertinent ECG results. Prior ECG tracings: available for review Imaging Imaging ordered: Chest x-ray Radiologist's impression: 11/06/2024 TECHNIQUE: AP portable FINDINGS: Stable cardiac silhouette. Mild increased streaky bibasilar opacities. No large pleural effusion or visible pneumothorax. IMPRESSION: Mild increased streaky bibasilar atelectasis/infiltrates.
--- NOTE | 2024-11-21 14:22 | Progress Note ---
Progress Note: Subjective Subjective Interval history: Patient remained afebrile throughout the night was 800 behind despite the 2 mg of Bumex given IV in the ER and fluids running A3 cautiously patient denies any shortness of breath states he feels better blood pressure stable. Patient able to walk or transfer himself out of bed he will be going home to live by himself. Patient unable to tell us his medicines and the ones at home that his grandchildren looked at at the labels removed. He states that not all the medications are his Exam Constitutional: abnormal general appearance (disheveled), (chronically ill) and (frail appearing), distress noted (moderate), average body habitus, limitations noted (physical limitations) and alert Vital Signs - 24 hr 11/20/24 14:25 11/20/24 15:00 11/20/24 15:26 Temperature Pulse Rate 84 Pulse Rate [Brachi al] 102 H Respiratory Rate 18 Blood Pressure 97/74 Blood Pressure [Le ft Arm] Pulse Oximetry 95 96 Oxygen Delivery Me thod Nasal Cannula Nasal Cannula Oxygen Flow Rate 2 2 11/20/24 15:26 11/20/24 15:36 11/20/24 15:45 Temperature 98.9 F Pulse Rate 87 Pulse Rate [Brachi al] 102 H Respiratory Rate 17 16 Blood Pressure 100/72 Blood Pressure [Le ft Arm] 83/55 Pulse Oximetry 98 96 96 Oxygen Delivery Me thod Nasal Cannula Nasal Cannula Oxygen Flow Rate 2 2 11/20/24 15:50 11/20/24 16:00 11/20/24 19:57 Temperature 99.1 F 98.1 F Pulse Rate 87 Pulse Rate [Brachi al] 93 H Respiratory Rate 16 21 Blood Pressure 100/72 83/55 Blood Pressure [Le ft Arm] 105/56 Pulse Oximetry 96 95 Oxygen Delivery Me thod Nasal Cannula Oxygen Flow Rate 11/20/24 20:35 11/20/24 20:35 11/20/24 23:42 Temperature 97.6 F Pulse Rate Pulse Rate [Brachi al] 85 Respiratory Rate 19 Blood Pressure Blood Pressure [Le ft Arm] 120/60 Pulse Oximetry 98 98 93 L Oxygen Delivery Me thod Nasal Cannula Nasal Cannula Oxygen Flow Rate 2 11/21/24 03:43 11/21/24 07:21 11/21/24 08:00 Temperature 97.5 F L 98.9 F Pulse Rate Pulse Rate [Brachi al] 72 99 H Respiratory Rate 18 20 Blood Pressure Blood Pressure [Le ft Arm] 97/55 105/53 Pulse Oximetry 95 96 93 L Oxygen Delivery Me thod Nasal Cannula Room Air Oxygen Flow Rate 11/21/24 11:10 11/21/24 11:45 Temperature 97.4 F L Pulse Rate Pulse Rate [Brachi al] 85 Respiratory Rate 19 Blood Pressure Blood Pressure [Le ft Arm] 107/57 Pulse Oximetry 95 94 L Oxygen Delivery Me thod Room Air Oxygen Flow Rate HENMT: normocephalic, head/scalp atraumatic, hearing grossly normal bilaterally, external ears normal, nasal mucous membranes normal, external nose normal, oral mucous membranes normal, oropharynx normal, dentition abnormal (caries) and gingiva normal Fresh out of the shower and his hair and celaya are still drying Eyes: PERRL, EOMs intact bilaterally, conjunctivae normal, no scleral icterus, no papilledema, normal visual garcia by confrontation, alignment normal, periorbital findings normal and no nystagmus Neck/C-Spine: abnormal to visual inspection, trachea midline, cervical spine nontender, abnormal cervical ROM noted, supple and no meningeal signs Lymph: no lymphadenopathy noted and no lymphedema noted Chest: inspection of chest normal Respiratory: breath sounds unequal, normal respiratory effort, clear to auscultation bilaterally, wheezing noted, rales noted (base), no retractions and no use of accessory muscles Cardiovascular: normal heart rate noted, regular rhythm noted, no gallop, no rub, no murmur, no JVD, peripheral pulses 2+ throughout and no additional abnormal heart sounds Gastrointestinal: abdomen abnormal to inspection, abdomen soft to palpation, nontender to palpation, nondistended, normoactive bowel sounds, hepatosplenomegaly noted, no masses, no pulsatile mass and no ascites Genitourinary: no CVA tenderness and bladder normal to palpation Back/Pelvis: spine abnormal to inspection, no thoracic spine tenderness, lumbar spine tenderness noted, thoracic spine ROM abnormal and lumbar spine ROM abnormal Extremities: abnormal to inspection, normal to palpation, no tenderness, abnormal ROM noted, joint enlargement noted and no deformity Edema down to a trace although still has chronic venous stasis changes no open wounds noted Neurology: information tech II-XII intact, no movement abnormality noted, no focal motor deficit noted, sensory deficit noted, deep tendon reflexes as noted:, gait abnormality noted, speech normal, coordination normal, no pronator drift noted, no fasciculations noted and GCS normal Psychiatry: Mental Status Exam documented within this Exam's Psych section mental status grossly normal, oriented x3 (Patient is alert and oriented to his normal state), thought process abnormality noted, cooperative, affect normal, psychomotor activity normal and memory abnormal Feel stressed/tense/nervous/anxious/difficulty sleeping: very much Life stressor details: Current medical condition Skin: skin color abnormal (Chronic venous stasis changes to the bilateral munson and calf areas), no rash, no lesions, no ecchymosis noted, no wounds, no lacerations, skin turgor normal, no jaundice, no petechiae, mottling noted (Knees and shins, Feet with normal coloration) Reports (extremities), nails abnormality noted and alopecia noted Progress Note: Objective Labs Labs: CBC 11/21/24 Range/Units 05:20 WBC 4.2 (3.7-9.6) K/uL RBC 3.2 L (4.40-5.80) M/uL Hgb 9.0 L (14.0-17.4) gm/dL Hct 27.1 L (41.3-50.1) % Plt Count 210 (142-355) K/uL Gran % 89.4 H (49.1-73.1) % Lymph % (Auto) 6.1 L (17.6-39.05) % [place] % (Auto) 4.4 L (4.5-10.7) % Eos % (Auto) 0.0 (0.0-4.0) % Baso % (Auto) 0.1 (0.0-1.3) Lymph # (Auto) 0.3 L (0.8-2.9) [place] # (Auto) 0.2 (0.2-0.8) Eos # (Auto) 0.0 (0.0-0.3) Baso # (Auto) 0.0 (0.0-0.1) Absolute Gran (auto) 3.8 (2.0-6.2) CMP 11/21/24 05:20 Sodium 133 L Potassium 4.0 Chloride 96.0 L Carbon Dioxide 26 BUN 37 H Creatinine 2.1 H Glucose 276 H Calcium 8.8 Urine 11/20/24 14:55 Urine Color Yellow Urine Appearance Clear Ur Specific [place] 1.015 Urine Protein Negative Urine Glucose (UA) Normal Pulse Oximetry Attestation: I have reviewed the pertinent pulse oximetry results. Progress Note: A&P Assessment and Plan (1) Hyponatremia: Assessment and Plan: Improved (2) Dehydration: (3) Congestive heart failure: Assessment and Plan: Stable Qualifiers: Heart failure chronicity: chronic Heart failure type: unspecified Qualified Code(s): I50.9 - Heart failure, unspecified (4) Pneumonia of both lower lobes: Qualifiers: Pneumonia type: due to unspecified organism Qualified Code(s): J18.9 - Pneumonia, unspecified organism (5) COPD (chronic obstructive pulmonary disease): Assessment and Plan: Stable Qualifiers: COPD type: COPD with acute lower respiratory infection Qualified Co de(s): J44.0 - Chronic obstructive pulmonary disease with (acute) lower respiratory infection (6) Diabetic neuropathy associated with type 2 diabetes mellitus: Qualifiers: Diabetes mellitus complication detail: diabetic polyneuropathy Qualified Code(s): E11.42 - Type 2 diabetes mellitus with diabetic polyneuropathy (7) Hypoalbuminemia: (8) Encounter for end of life education, guidance and counseling: (9) Anemia, normocytic normochromic: (10) [id number] kidney injury: Assessment and Plan: Worsening Qualifiers: Acute renal failure type: unspecified Chronic kidney disease stage: stage 3 (moderate) Chronic kidney disease stage 3 subtype: stage 3a (GFR 45-59) Qualified Code(s): N17.9 - Acute kidney failure, unspecified; N18.31 - Chronic kidney disease, stage 3a (11) Dementia: Qualifiers: Dementia behavioral or psychological symptom: with other behavioral disturbance Dementia severity: mild Dementia type: vascular dementia Qualified Code(s): F01.A18 - Vascular dementia, mild, with other behavioral disturbance (12) HLD (hyperlipidemia): Qualifiers: Hyperlipidemia type: mixed hyperlipidemia Qualified Code(s): E78.2 - Mixed hyperlipidemia (13) HTN (hypertension): Qualifiers: Hypertension type: primary hypertension Qualified Code(s): I10 - Essential (primary) hypertension (14) Hypothyroid: Qualifiers: Hypothyroidism type: other Qualified Code(s): E03.8 - Other specified hypothyroidism (15) BPH (benign prostatic hyperplasia): Qualifiers: Lower urinary tract symptom detail: unspecified Lower urinary tract symptom presence: symptoms present Qualified Code(s): N40.1 - Benign prostatic hyperplasia with lower urinary tract symptoms (16) Chronic venous stasis dermatitis of both lower extremities: Plan Cardiac monitoring continuous pulse ox Cautious IV hydration with normal saline at 83 an hour with daily weights Diuretics as warranted secondary to fluid overload with congestive heart failure and vascularly dry at this time Strict I's and O's DuoNeb every 6 hours Oxygen to keep sats greater than 92% Pulmicort 0.5 every 12 hours Solu-Medrol 40 mg IV every 8 hours Zithromax 500 mg every day Rocephin 1 g IV every day Leave head of bed elevated do not lay patient flat Will have nurse Shower and shave the patient today Fall Risk Details Snell Fall Scale Risk Level: High Fall Risk Current Medications: Current Medications Acetaminophen (Acetaminophen 500 Mg Tablet) 1,000 mg PO Q6H PRN PRN Reason: MILD PAIN SCALE 1-4 Hydrocodone Bitart/Acetaminophen (Hydrocodone/Acetaminophen 5/325 Mg Tablet) 1 each PO Q6H PRN PRN Reason: Moderate Pain SCALE 5-7 Last Admin: 11/20/24 19:35 Dose: 1 each Albuterol Sulfate (Ipratropium/Albuterol Sulfate 3 Ml Ampul.Neb) 3 ml INH RQ4 [facility] Last Admin: 11/21/24 11:10 Dose: 3 ml Dexamethasone (Dexamethasone 4 Mg Tablet) 4 mg PO BID [facility] Last Admin: 11/21/24 08:23 Dose: 4 mg Docusate Sodium (Docusate Sodium 100 Mg Capsule) 100 mg PO DAILY PRN PRN Reason: Constipation Sodium Chloride (Sodium Chloride) 1,000 mls @ 75 mls/hr IV CONT [facility] Last Admin: 11/21/24 06:40 Dose: 75 mls/hr Insulin Human Regular (Insulin Regular, Human 100 Unit/Ml) 0 unit SUBQ ACHS PRN; Protocol PRN Reason: hyperglycemia Last Admin: 11/21/24 08:22 Dose: 6 unit Magnesium Hydroxide (Magnesium, Aluminum Hydroxide 30 Ml Oral.Susp) 30 ml PO DAILY PRN PRN Reason: Heartburn Morphine Sulfate (Morphine Sulfate 2 Mg/Ml Cartridge) 2 mg IV Q4H PRN PRN Reason: Severe Pain SCALE 8-10 Ondansetron HCl (Ondansetron Hcl/Pf 4 Mg/2 Ml Vial) 4 mg INJ Q6H PRN PRN Reason: Nausea And Vomiting Pantoprazole Sodium (Pantoprazole Sodium 40 Mg Tablet.Dr) 40 mg PO DAILY ADINA Last Admin: 11/21/24 08:23 Dose: 40 mg Time Spent With Patient Time: Total time spent is greater than 50% in coordination of care (as documented) at patient's floor/unit and/or counseling patient:
[2024-11-21] MEDS: CEFTRIAXONE SODIUM 1 GM in 0.9 % SODIUM CHLORIDE MB+ 50 ML IV SCH (15:50)
[2024-11-21] MEDS: AZITHROMYCIN 500 MG 500 MG in 0.9 % SODIUM CHLORIDE 250 ML IV SCH (15:50)
[2024-11-21] MEDS: METHYLPREDNISOLONE SOD SUCC/PF 125 MG/2 ML VIAL IVP SCH (15:51)
[2024-11-21] MEDS: ENOXAPARIN SODIUM 40 MG/0.4 ML SYRINGE SUBQ SCH (15:51)
[2024-11-22 04:59] LABS: Basophils%(Percent) Auto 0.1 (0.0-1.3); Granulocytes % - Auto 94.4 % (49.1-73.1); Granulocytes#(Absolute)- Auto 10.5 (2.0-6.2); Hematocrit 27.3 % (41.3-50.1); Mean Corpuscular Volume 85.3 fl (81.9-96.5); Monocytes #(Absolute)- Auto 0.3 (0.2-0.8); Monocytes %(Percent)- Auto 2.8 % (4.5-10.7); Platelet Count 208 K/uL (142-355); White Blood Count 11.1 K/uL (3.7-9.6)
[2024-11-22 05:12] LABS: Potassium 4.2 mmol/L (3.6-5.2)
[2024-11-22] MEDS: ALBUMIN HUMAN 25% 100 ML IV SCH (09:20)
--- NOTE | 2024-11-22 10:25 | Discharge Summary ---
DS: Providers Provider Date of admission: 11/20/24 15:22 Primary care physician: Lakhwinder Camp MD Admitting clinician: Ole Chirinos Attending physician on admission: Juani Nixon Attending physician on discharge: Juani Nixon Discharging clinician: Juani Nixon Anticipated date of discharge: 11/22/24 DS: Diagnosis Discharge Diagnosis (1) Hyponatremia: (2) Dehydration: (3) Congestive heart failure: Qualifiers: Heart failure chronicity: chronic Heart failure type: unspecified Qualified Code(s): I50.9 - Heart failure, unspecified (4) Pneumonia of both lower lobes: Qualifiers: Pneumonia type: due to unspecified organism Qualified Code(s): J18.9 - Pneumonia, unspecified organism (5) COPD (chronic obstructive pulmonary disease): Qualifiers: COPD type: COPD with acute lower respiratory infection Qualified Code(s): J44.0 - Chronic obstructive pulmonary disease with (acute) lower respiratory infection (6) Diabetic neuropathy associated with type 2 diabetes mellitus: Qualifiers: Diabetes mellitus complication detail: diabetic polyneuropathy Qualified Code(s): E11.42 - Type 2 diabetes mellitus with diabetic polyneuropathy (7) Hypoalbuminemia: (8) Encounter for end of life education, guidance and counseling: (9) Anemia, normocytic normochromic: (10) [id number] kidney injury: Qualifiers: Acute renal failure type: unspecified Chronic kidney disease stage: stage 3 (moderate) Chronic kidney disease stage 3 subtype: stage 3a (GFR 45-59) Qualified Code(s): N17.9 - Acute kidney failure, unspecified; N18.31 - Chronic kidney disease, stage 3a (11) Dementia: Qualifiers: Dementia behavioral or psychological symptom: with other behavioral disturbance Dementia severity: mild Dementia type: vascular dementia Qualified Code(s): F01.A18 - Vascular dementia, mild, with other behavioral disturbance (12) HLD (hyperlipidemia): Qualifiers: Hyperlipidemia type: mixed hyperlipidemia Qualified Code(s): E78.2 - Mixed hyperlipidemia (13) HTN (hypertension): Qualifiers: Hypertension type: primary hypertension Qualified Code(s): I10 - Essential (primary) hypertension (14) Hypothyroid: Qualifiers: Hypothyroidism type: other Qualified Code(s): E03.8 - Other specified hypothyroidism (15) BPH (benign prostatic hyperplasia): Qualifiers: Lower urinary tract symptom detail: unspecified Lower urinary tract symptom presence: symptoms present Qualified Code(s): N40.1 - Benign prostatic hyperplasia with lower urinary tract symptoms (16) Chronic venous stasis dermatitis of both lower extremities: DS: Summary Hospital Course Hospital Course: 84-year-old male that presented to ER with complaint of dyspnea and shortness of breath upon exertion and when lying down report he feels like he is choking whenever he lays back has been evaluated by physical exam, CBC, CMP, BNP, urinalysis, EKG, and plain film chest x-ray with results as noted in charting. Patient's CBC shows patient anemic with a hemoglobin of 10.4, patient's BNP is elevated at 103, CMP shows hyponatremia with a sodium of 129, elevated BUN and creatinine with a BUN of 31 and creatinine 1.8 showing acute on chronic kidney injury and dehydration, patient is also hypoalbuminemic at 2.8, patient's plain film chest x-ray shows increased streaky bibasilar atelectasis/infiltrates. Patient will be admitted to the MedSurg floor for diuresis and hydration, albumin replacement, sodium replacement, respiratory therapy evaluation, breathing treatments, and repeat lab work as necessary. Patient has been made aware of the treatment plan and agrees with it. Patient's labs did not change in basal insulin and did improve after calculations with glucose correction. Patient states he felt much better confusion back to his baseline per his family. Family declines hospice nor assisted living nor skilled nursing at this time and they will continue to have people set with him and they will find a family member to help take care of her monitoring his medication and to see that he is getting them correctly and discussed with his pharmacy about packaging his medications for each use. Status at Discharge Functional status at discharge: uses cane/walker Overall status at discharge: patient is progressing back to baseline Time Spent with Patient Time attestation: Total time spent providing and/or coordinating discharge services:59 Time spent: greater than 30 minutes Exam Constitutional: abnormal general appearance (chronically ill) and (frail appearing), distress noted (moderate), average body habitus, limitations noted (altered mental status) and (physical limitations) and alert Vital Signs - 24 hr 11/21/24 11:10 11/21/24 11:45 11/21/24 15:10 Temperature 97.4 F L Pulse Rate [Brachi al] 85 Respiratory Rate 19 Blood Pressure [Le ft Arm] 107/57 Pulse Oximetry 95 94 L 96 Oxygen Delivery Me thod Room Air Oxygen Flow Rate 11/21/24 16:00 11/21/24 20:00 11/21/24 20:34 Temperature 98.6 F 97.4 F L Pulse Rate [Brachi al] 60 60 Respiratory Rate 22 22 Blood Pressure [Le ft Arm] 95/50 112/59 Pulse Oximetry 90 L 96 Oxygen Delivery Me thod Room Air Nasal Cannula Nasal Cannula Oxygen Flow Rate 2 11/21/24 23:43 11/22/24 03:37 11/22/24 08:00 Temperature 97.7 F 97.6 F 97.4 F L Pulse Rate [Brachi al] 87 84 85 Respiratory Rate 20 18 20 Blood Pressure [Le ft Arm] 91/43 106/53 111/53 Pulse Oximetry 98 95 95 Oxygen Delivery Me thod Nasal Cannula Nasal Cannula Nasal Cannula Oxygen Flow Rate 2 11/22/24 08:54 Temperature Pulse Rate [Brachi al] Respiratory Rate Blood Pressure [Le ft Arm] Pulse Oximetry 94 L Oxygen Delivery Me thod Oxygen Flow Rate HENMT: normocephalic, head/scalp atraumatic, hearing grossly normal bilaterally, external ears normal, nasal mucous membranes normal, external nose normal, oral mucous membranes normal, oropharynx normal, dentition abnormal (caries) and gingiva normal Eyes: PERRL, EOMs intact bilaterally, conjunctivae normal, no scleral icterus, no papilledema, normal visual garcia by confrontation, alignment normal, periorbital findings normal and no nystagmus Neck/C-Spine: visual inspection normal, trachea midline, cervical spine nontender, cervical full ROM noted, supple and no meningeal signs Lymph: no lymphadenopathy noted and no lymphedema noted Chest: inspection of chest normal Respiratory: breath sounds equal bilaterally, normal respiratory effort, clear to auscultation bilaterally, no wheezes, no rales, no retractions and no use of accessory muscles Cardiovascular: normal heart rate noted, regular rhythm noted, no gallop, no murmur, no JVD, peripheral pulses 2+ throughout and no additional abnormal heart sounds Gastrointestinal: abdomen normal to inspection, abdomen soft to palpation, nontender to palpation, nondistended, normoactive bowel sounds, no hepatosplenomegaly, no masses, no pulsatile mass and no ascites Genitourinary: no CVA tenderness and bladder normal to palpation Back/Pelvis: spine normal to inspection Extremities: normal to inspection, normal to palpation, no tenderness, full ROM, no joint enlargement and no deformity Neurology: autocad draftsman II-XII intact, no movement abnormality noted, no focal motor deficit noted, sensory deficit noted, gait abnormality noted, speech normal, coordination normal, no pronator drift noted, no fasciculations noted and GCS normal Psychiatry: Mental Status Exam documented within this Exam's Psych section mental status grossly normal, orientation abnormal (Patient is alert and oriented to his normal state), thought process abnormality noted, cooperative, affect normal, psychomotor abnormality noted (agitated) and memory abnormal Feel stressed/tense/nervous/anxious/difficulty sleeping: rather much Life stressor details: Current medical condition Skin: skin color normal, no rash, no lesions, no ecchymosis noted, no wounds, no lacerations, skin turgor normal, no jaundice, no petechiae, no mottling, nails normal and alopecia noted DS: Data Data Completed and Pending Labs on day of discharge: Labs from last 24 hours 11/22/24 04:40 WBC 11.1 H RBC 3.2 L Hgb 9.1 L Hct 27.3 L MCV 85.3 MCH 28.3 MCHC 33.2 RDW 15.3 H Plt Count 208 MPV 8.3 Gran % 94.4 H Lymph % (Auto) 2.7 L [place] % (Auto) 2.8 L Eos % (Auto) 0.0 Baso % (Auto) 0.1 Lymph # (Auto) 0.3 L [place] # (Auto) 0.3 Eos # (Auto) 0.0 Baso # (Auto) 0.0 Absolute Gran (auto) 10.5 H Sodium 134 L Potassium 4.2 Chloride 100.0 Carbon Dioxide 25 Anion Gap 9.0 BUN 43 H Creatinine 1.9 H Estimated GFR 33.9 Glucose 233 H Calcium 9.0 Phosphorus 3.8 Magnesium 2.3 Total Bilirubin 0.18 AST 14 L ALT 9 L Alkaline Phosphatase 91 B-Natriuretic Peptide 217.0 H Total Protein 6.3 L Albumin 2.4 L Imaging Chest x-ray: Attestation: I have reviewed the pertinent imaging results. Radiologist's impression: COMPARISON: November 20, 2024. TECHNIQUE: Frontal view of the chest was submitted for interpretation. FINDINGS: The cardiomediastinal silhouette is stable in size. Lungs demonstrate bibasilar reticular changes which may be related to fibrosis. IMPRESSION: Bibasilar reticular changes possibly related to fibrosis. XR CHEST 1V HISTORY: shortness of breathshortness of breath; COMPARISON: 11/06/2024 TECHNIQUE: AP portable FINDINGS: Stable cardiac silhouette. Mild increased streaky bibasilar opacities. No large pleural effusion or visible pneumothorax. IMPRESSION: Mild increased streaky bibasilar atelectasis/infiltrates Discharge Plan Discharge Disposition: Home, Self-Care Condition: Improved Discharge Medications: Continued fluticasone propion-salmeterol [Wixela Inhub] 250-50 mcg/dose blister with device 1 inh INHALATION Q12H Patient Comments: INHALE 1 PUFF INTO THE LUNGS TWICE A DAY FOR 90 DAYS alfuzosin 10 mg tablet extended release 24 hr 10 mg PO DAILY latanoprost 0.005 % drops 1 drp OPHTHALMIC (EYE) .QHS levothyroxine [Synthroid] 50 mcg tablet 50 mcg PO DAILY simvastatin 20 mg tablet 20 mg PO BEDTIME glimepiride 2 mg tablet 2 mg PO QAM Rx Instructions: administer with breakfast Discontinued benzonatate 200 mg capsule 200 mg PO TID PRN (Reason: cough) Qty: 20 0RF Discharge Orders: Discharge Order (Routine); Ordered 11/22/24 Ordered By: Juani Nixon Activity: as per physical therapy and increase activity as tolerated Diet: diabetic diet and low fat, low cholesterol Activity Restrictions/Additional Instructions: Daily weights and make a journal to carry to his PCP on follow-up in 1 week and increase water in his daily diet. Return to the ER [facility] if he becomes more confused or any concerns by the patient and the family has difficulty making urine or large change in weight greater than 5 pounds send home with the family once patient and family have an understanding medications and which grandchild will be in charge of the patients medications as he is advancing with his dementia and cannot do his ADL's and medications without supervision and directions Forms: Portal/Health Info Access Inst Follow-Ups: Lakhwinder Camp MD [Primary Care Provider, Medical] - 12/02/24 12:00 pm
[2024-11-22 11:54] VITALS: BP 113/53; PULSE 83; RESP 19; TEMP 97.6
[2024-11-22] MEDS ORDERED: METHYLPREDNISOLONE SOD SUCC/PF 125 MG/2 ML VIAL IVP SCH (16:00)
== END 2024-11-22 13:09 | disposition home or self-care (01) ==
LOC: MS 12:33 → ED 12:33 → MS 15:50
PROVIDERS: ADMIT Family Medicine; ATTEND Family Medicine
DX: Z60.2 Problems related to living alone; Z87.891 Personal history of nicotine dependence; N40.1 Benign prostatic hyperplasia with lower urinary tract symptoms; E88.09 Other disorders of plasma-protein metabolism, not elsewhere classified; E03.8 Other specified hypothyroidism; I50.9 Heart failure, unspecified; E78.2 Mixed hyperlipidemia; J98.11 Atelectasis; D63.1 Anemia in chronic kidney disease; E86.0 Dehydration; E11.22 Type 2 diabetes mellitus with diabetic chronic kidney disease; Z79.4 Long term (current) use of insulin; Z79.84 Long term (current) use of oral hypoglycemic drugs; Z79.899 Other long term (current) drug therapy; E87.1 Hypo-osmolality and hyponatremia; E11.42 Type 2 diabetes mellitus with diabetic polyneuropathy; F01.A18 Vascular dementia, mild, with other behavioral disturbance; E88.A Wasting disease (syndrome) due to underlying condition; I87.2 Venous insufficiency (chronic) (peripheral); Z68.23 Body mass index [BMI] 23.0-23.9, adult; N18.31 Chronic kidney disease, stage 3a; J44.0 Chronic obstructive pulmonary disease with (acute) lower respiratory infection; I13.0 Hypertensive heart and chronic kidney disease with heart failure and stage 1 through stage 4 chronic kidney disease, or unspecified chronic kidney disease; J18.9 Pneumonia, unspecified organism; Z79.890 Hormone replacement therapy; N17.9 Acute kidney failure, unspecified